=== PATIENT | male | born 1945 | race Caucasian/White ===

== ENCOUNTER 2017-03-29 13:18 | Inpatient (IN) | payer MEDICARE ==
[2017-03-29] MEDS ORDERED: Diltiazem HCl 125 MG, IV Admixture Fee 1 EACH in Sodium Chloride 0.9% 100 ML SLOW IVP SCH (13:45)
[2017-03-29] MEDS ORDERED: Diabetic Tussin 200 MG/10 ML UDCUP PO PRN (14:51)
[2017-03-29] MEDS ORDERED: Mag-Al 1200 mg/1200 mg/30 ML UDCUP PO PRN (14:51)
[2017-03-29] MEDS ORDERED: Senokot 8.6 MG TAB PO PRN (14:51)
[2017-03-29] MEDS ORDERED: Nitroglycerin 0.4 MG TAB (25 Tab Bottle) SL PRN (14:51)
[2017-03-29] MEDS ORDERED: Loratadine 10 MG TAB PO PRN (14:51)
[2017-03-29] MEDS ORDERED: Zolpidem Tartrate 5 MG TAB PO PRN (14:51)
[2017-03-29] MEDS ORDERED: HYDROcodone/Acetaminophen 5/325 mg Tablet PO PRN (14:51)
[2017-03-29] MEDS ORDERED: Ondansetron ODT 4 MG TAB PO PRN (14:51)
[2017-03-29] MEDS ORDERED: Labetalol HCl 100 MG/20 ML VIAL SLOW IVP PRN (14:51)
[2017-03-29] MEDS ORDERED: Acetaminophen 325 MG TAB PO PRN (14:51)
[2017-03-29] MEDS ORDERED: Loperamide HCl 2 MG CAP PO PRN (14:51)
[2017-03-29] MEDS ORDERED: Artificial Tears 18 DROP/0.9 ML EA EYE PRN (14:51)
[2017-03-29] MEDS ORDERED: Eucerin (Mineral Oil/Petrolatum,White) 30 gm Jar TOP PRN (14:51)
[2017-03-29] MEDS ORDERED: Ondansetron HCl/PF 4 MG/2 ML Vial IVP PRN (14:51)
[2017-03-29] MEDS ORDERED: Sodium Chloride 0.65% Nasal 44 ML BOT EA NARE PRN (14:51)
[2017-03-29] MEDS ORDERED: Milk Of Magnesia 30 ML UDCUP PO PRN (14:51)
[2017-03-29] MEDS ORDERED: Digoxin 0.5 MG/2 ML AMP SLOW IVP SCH (15:00)
--- NOTE | 2017-03-29 15:14 | HP ---
PRIMARY CARE PHYSICIAN: Naila Lobo, Family Nurse practitioner in [place]. REASON FOR ADMISSION: Transfer from [facility] for atrial flutter with rapid ventricu lar response. HISTORY OF PRESENT ILLNESS: A 71-year-old male who has history of hypertension, congestive heart fa ilure as well as paroxysmal atrial flutter/fibrillation who initially went to [facility] for complaint of palpitation and dizziness. The patient reports that yesterday when he was drink ing coffee, he was feeling palpitations and cold sweat, but that symptoms lasted for only a short te rm and after that he did not have any further palpitation. This morning when the patient was making coffee and he was drinking coffee along with his mother, at that time, patient was also experiencin g palpitations and dizziness. He was feeling funny in his chest. He was not feeling good. He trie d to walk outside, but he was feeling extremely fatigued and dizziness as if he is going to pass out and that is why he came back to his home and laid on couch and asked his mother to call 911. Subse quently, paramedics took him to [facility] where patient was found with atrial fibrill ation/flutter with rapid ventricular response. The patient was given Lovenox 1 mg/kg and he was sta rted on Cardizem drip after bolus that slowed down his heart rate a little bit, but still he was in atrial flutter and that is why this patient was transferred to our emergency room for higher level o f care. This patient reports that he does get this type of palpitations on and off basis, but most of the ti me, it is self-limiting and subsides by itself, but this episode was worst ever and that is why he h as to go to the emergency room. Normally he drinks 2 cups of coffee. He denies any excessive caffeinated products other than that. The patient reports that he has this type of problem in the past, but he is not sure whether any el ectrophysiologic procedure was done or not. The patient is following here Dr. Theodore as a cardiologis t. EMERGENCY ROOM COURSE: This patient was given Cardizem bolus and Cardizem drip at [facility]. Patient also received Lovenox 1 mg/kg and patient was also given normal saline flush with Cardizem injection. REVIEW OF SYSTEMS: The following complete review of systems was negative, unless otherwise mentione d in the HPI or below: Constitutional: Weight loss or gain, ability to conduct usual activities. Skin: Rash, itching. Eyes: Double vision, pain. ENT/Mouth: Nose bleeding, neck stiffness, pain, tenderness. Cardiovascular: Palpitations, dyspnea on exertion, orthopnea. Respiratory: Shortness of breath, wheezing, cough, hemoptysis, fever or night sweats. Gastrointestinal: Poor appetite, abdominal pain, heartburn, nausea, vomiting, constipation, or diar harper. Genitourinary: Urgency, frequency, dysuria, nocturia. Musculoskeletal: Pain, swelling. Neurologic/Psychiatric: Anxiety, depression. Allergy/Immunologic: Skin rash, bleeding tendency. Please see my HPI for pertinent positive and negative. All other review of systems reviewed and neg ative except as mentioned in the HPI. PAST MEDICAL HISTORY: 1. The patient reports that he was told that he has congestive heart failure, but type of congestiv e heart failure is not sure, most likely diastolic. 2. Hypertension. 3. Paroxysmal atrial fibrillation. 4. Dyslipidemia. 5. Gout. PAST SURGICAL HISTORY: Reviewed and negative. PAST PSYCHIATRIC HISTORY: Reviewed and negative. SOCIAL HISTORY: Patient lives at home. He smokes nontobacco products. He denies any smoking. He denies any alcohol. He denies any other illicit drug abuse, but he drinks alcohol, 6 beers on bases. FAMILY HISTORY: Father from melanoma. Mother is still alive. Paternal and maternal grandfath er has history of coronary artery disease. ALLERGIES: No known drug allergies. CURRENT HOME MEDICATIONS: Lisinopril 20 mg p.o. daily, Coreg 6.25 mg twice daily, Lipitor 40 mg p.o . at bedtime, amlodipine 5 mg p.o. daily, allopurinol 100 mg p.o. daily, digoxin 125 mcg p.o. daily, aspirin 81 mg p.o. daily. PHYSICAL EXAMINATION: VITAL SIGNS: In our emergency room, blood pressure 117/91, pulse 143 irregular, respiratory rate 19 , temperature 97.3, saturation 93% on room air, weight 100.7 kilograms. GENERAL: Patient is currently alert, awake, no acute distress. HEAD: Normocephalic, atraumatic. EYES: Pupils round, reactive to light. Extraocular muscles intact. ENT: Oropharynx within normal limits. Moist mucous membranes, no oral lesions, no pharyngeal eryth stephen, no exudate. NECK: Supple. Range of motion is normal. No meningeal signs of irritation. LUNGS: Clear to auscultation without any rhonchi or rales. CARDIAC: S1 and S2 irregularly irregular, tachycardia, no murmur, no gallop, no rub. ABDOMEN: Obesity present. Bowel sounds present. Nontender, nondistended. No organomegaly, no mas s, no suprapubic tenderness. BACK: Examination unremarkable, no CVA tenderness. EXTREMITIES: Upper extremity passive movements of all joints are normal. Lower extremity, no edema . Good peripheral pulsation. SKIN: No skin rash. HEMATOLOGICAL SYSTEM: No lymphadenopathy. NEUROLOGIC: Nonfocal examination. The patient moves all 4 limbs. Plantar bilateral flexor. PSYCHIATRIC: Normal affect. LABORATORY DATA AND IMAGIN. BMP: Sodium 137, potassium 4.6, chloride 106, carbon dioxide 22, anion gap 9, glucose 110, BUN 23, creatinine 1.0, and calcium 9.0. 2. LFT: Total protein 6.9, albumin 3.9, AST 26, ALT 28, alkaline phosphatase 70. 3. Lactic acid 1.7 and lipase 22. 4. Troponin 0.01, CK 47, CK-MB 1.4. 5. TSH 1.47, digoxin 0.4. 6. CBC: WBC 13.3, hemoglobin 18.0, platelets 257. D-dimer less than 150. INR 1.1. 7. Chest x-ray based on my review, no acute cardiopulmonary process. EKG was done at [facility] Room consistent with atrial flutter/fibrillation with rapid ventricular response. ASSESSMENT AND PLAN: 1. Atrial fibrillation/atrial flutter with rapid ventricular response. The patient is on Cardizem drip, his heart rate is still not under control. Patient will require admission. This patient has paroxysmal problem as well. He will need ablation procedure. He will need electrophysiology consul tation as well as cardiology consultation. We will continue with Cardizem drip at 10 mg per hour. We will also consider giving him digoxin 0.125 mg IV x1 dose now. We will continue with Lovenox 1 m g per kg subcu twice daily for chronic anticoagulation. This patient will need chronic anticoagulat ion therapy. Upon discharge, we will obtain echocardiography to assess ejection fraction and other structural abnormality. We will closely monitor on telemetry floor. This patient's thyroid functio n is normal. I advised this patient to avoid excessive caffeinated products. 2. Congestive heart failure, likely diastolic, currently compensated and euvolemic. Patient will h ave echocardiography to assess ejection fraction and other structural abnormality. This patient munoz s not need any diuretic therapy at this point. We will try to control underlying problem like atria l flutter, fibrillation, and hypertension. 3. Hypertension, currently well controlled. We will hold on lisinopril therapy today because we ar e trying to control his heart rate with Cardizem drip and similarly we will also hold on carvedilol temporarily. 4. Dyslipidemia. Check lipid profile tomorrow and continue Lipitor 40 mg p.o. at bedtime. 5. Gout. We will check uric acid tomorrow and continue allopurinol 100 mg p.o. daily. 6. Deep venous thrombosis prophylaxis. Patient is already on Lovenox therapy. 7. Gastrointestinal prophylaxis, Pepcid 20 mg p.o. b.i.d. 8. Obesity. Dietary education given and weight loss education given. Healthy lifestyle measures d iscussed with the patient. 9. CODE STATUS: The patient is FULL CODE. Patient does not have any surrogate decision maker. Disposition and plan based on clinical course. We are expecting patient's stay in hospital more helen n 2 midnights. Plan of care discussed with the patient in detail.
[2017-03-29 15:19] LABS: Troponin I Less than 0.010 ng/mL (< 0.028)
[2017-03-29 15:57] VITALS: BMI 28.0
[2017-03-29 17:16] LABS: Bilirubin Negative (Negative); Blood, Urine Negative (Negative); Glucose, Urine (Dipstick) Negative (Negative); Ketone, Urine Trace mg/dL (Negative); Nitrite Negative (Negative); Protein, Urine (Dipstick) Negative (Neg-Trace); Urobilinogen 0.2 mg/dL (0.2-1.0)
[2017-03-29 17:18] LABS: Bacteria/HPF None Seen HPF (None Seen); Hyaline Casts/LPF 0-3 HYALINE CAST LPF (0-3 Hyaline); Squamous Epithelial None Seen HPF (0-3); WBC/HPF 0-3 HPF (0-3)
[2017-03-29 18:29] LABS: Troponin I 0.012 ng/mL (< 0.028)
[2017-03-29] MEDS: Atorvastatin Calcium 40 MG TAB PO SCH (20:17)
[2017-03-29] MEDS: Famotidine 20 MG TAB PO SCH (20:17)
[2017-03-30 05:25] LABS: #Basophils 0.1 thou/uL (0.0-0.2); #Eosinphils 0.4 thou/uL (0.0-0.7); #Monocytes 1.4 thou/uL (0.11-0.59); #Neutrophils 10.9 thou/uL (1.40-6.50); %Basophils 0.6 % (0.0-1.0); %Eosinophils 2.7 % (0.0-10.0); %Lymphocytes 13.4 % (21.0-51.0); %Monocytes 9.4 % (0.0-10.0); Hematocrit 52.2 % (42.0-52.0); Mean Platelet Volume 7.1 fL (7.4-10.4); Red Blood Cell (RBC) Count 5.35 mill/uL (4.70-6.10); White Blood Cell (WBC) Count 14.7 thou/uL (4.8-10.8)
[2017-03-30 05:52] LABS: ALT (SGPT) 19 U/L (8-55); AST (SGOT) 17 U/L (5-34); Alkaline Phosphatase 70 U/L (40-150); Anion Gap 13 mmol/L (10-20); BUN (Urea Nitrogen) 21 mg/dL (8.4-25.7); Bilirubin, Total 0.6 mg/dL (0.2-1.2); Calc. Creatinine Clearance 94 mL/min (70-130); Calcium 8.9 mg/dL (7.8-10.44); Carbon Dioxide 25 mmol/L (23-31); Chloride 104 mmol/L (98-107); Cholesterol 162 mg/dl (< 200 Desired); Estimated GFR-MDRD 79; Globulin 2.7 g/dL (2.4-3.5); LDL Cholesterol, Calculated 93 mg/dL; Protein, Total 6.3 g/dL (5.8-8.1); Uric Acid 7.6 mg/dL (3.5-7.2)
--- NOTE | 2017-03-30 06:45 | CON ---
DATE OF CONSULTATION: 03/29/2017 ELECTROPHYSIOLOGY CONSULTATION REFERRING PHYSICIAN: Dr. Ott. I am seeing Mr. 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 His problems are: 1. Newly found atrial flutter with rapid ventricular rates. A. No prior history of atrial fibrillation or flutter, but only palpitation on diagnosis. B. Past history of diastolic heart failure followed by Dr. Kun Theodore as an outpatient. C. Coronary artery risk factors. 2. Hypertension. 3. Dyslipidemia. ALLERGIES: None noted. MEDICATIONS: At home lisinopril 20 mg daily, Coreg 6.25 mg twice a day, Lipitor 40 mg at bedtime, a mlodipine 5 mg daily, allopurinol 100 mg daily, digoxin 125 mcg daily, aspirin 81 mg daily. SUBJECTIVE: Mr. Beverly is here due to rapid palpitations. The echo was noted to have rapid heart r ates in the ER, the EKG suggestive of atrial flutter. He was started on diltiazem drip and given IV Lovenox. He has been feeling somewhat better. He denies chest pains. No stroke like symptoms not ed, does not report any bleeding, no fever, chills, cough, no wheezing, no PND, orthopnea or lower e xtremity edema or weight gain recently. REVIEW OF SYSTEMS: The rest of the 12-point review of system otherwise unremarkable. PAST MEDICAL HISTORY: As above, the patient has a remote history of lower extremity pain and Dopple r ultrasound was negative for claudication. SOCIAL HISTORY: The patient denies smoking, EtOH or drug abuse. He is at home. He does drink abou t 6 beers on weekend. FAMILY HISTORY: Noncontributory. OBJECTIVE DATA: VITAL SIGNS: Blood pressure is 118/83, heart rate is 147, respiratory rate 16, temperature 97.9 deg janis Fahrenheit. GENERAL: Alert and oriented man in no apparent distress. NECK: Supple. Jugular veins are not distended. CHEST: Coarse without crackles. CARDIAC: Heart sounds are irregular, tachycardic, S1, S2, is variable. No murmur or gallop. ABDOMEN: Benign. Bowel sounds are positive. EXTREMITIES: Lower extremities without edema, clubbing or cyanosis. Pulses are adequate. NEUROLOGIC: The patient is nonfocal. MUSCULOSKELETAL: No joint swelling or deformities. SKIN: Without rash. DATABASE: The EKG is reviewed revealing typical atrial flutter with 2:1 AV conduction. Prior EKG i n the ER reveals atrial flutter with somewhat variable AV conduction and typical flutter waves are s een suggestive of cavotricuspid isthmus dependency. LABORATORY DATA: Troponin is 0.012, initial troponin 0.01. The BMP with sodium 137, potassium 4.6, BUN 23, creatinine 1.0, 1.7. TSH 1.47. White cell count 13.3, hemoglobin 18, platelet count is 257. D-dimer less than 150. Chest x-ray shows no acute cardiopulmonary process. ASSESSMENT AND PLAN: Mr. Beverly is a very pleasant 71-year-old man who has a history of palpitation s, but not aware of definite atrial fibrillation. He is somewhat of a poor historian. Now seems to be presenting with atrial flutter with rapid rates. I discussed the mechanism of atrial flutter, which likely cavotricuspid isthmus dependent flutter ba sed on the EKG morphology. The treatment options were detailed including rate control anticoagulati on. A BLAISE guided cardioversion and possibly cavotricuspid isthmus ablation were all discussed. ___ __ of the ablation, which likely will yield more lasting result. He would prefer that he understand s the risk of bleeding, infection, stroke, recurrence, and tamponade, willing to proceed. We will s chedule him for the nearest date. Thank you for the consult.
[2017-03-30] MEDS: Aspirin 325 MG TAB PO SCH (07:44)
[2017-03-30] MEDS: Digoxin 0.125 MG TAB PO SCH (08:10)
[2017-03-30] MEDS: Famotidine 20 MG TAB PO SCH ×2 (08:16→21:34)
[2017-03-30 08:26] LABS: Magnesium 1.9 mg/dL (1.6-2.6); Phosphorus 3.4 mg/dL (2.3-4.7)
[2017-03-30] MEDS ORDERED: Allopurinol 100 MG TAB PO SCH (09:00)
[2017-03-30] MEDS ORDERED: Diprivan 0 ML ONE (13:59)
[2017-03-30] MEDS ORDERED: PHENYLEPHRINE-NS 100 MCG/ML 10 ML SYRINGE ONE ×2 (15:46→15:51)
[2017-03-30] MEDS ORDERED: Glycopyrrolate 0.2 MG/ML 5 ML SYRINGE ONE ×2 (15:47→15:51)
[2017-03-30] MEDS ORDERED: Heparin 10,000 UNITS/1 ML VIAL ONE (15:49)
[2017-03-30] MEDS ORDERED: Propofol 1,000 MG/100 ML VIAL IV ONE (15:50)
[2017-03-30] MEDS ORDERED: Propofol 200 MG/20 ML VIAL ONE (15:51)
[2017-03-30] MEDS ORDERED: Propofol 500 MG/50 ML VIAL ONE (17:02)
[2017-03-30] MEDS ORDERED: DOPamine 400 MG/D5W 250 ML 250 ML ONE (17:03)
[2017-03-30] MEDS ORDERED: Labetalol HCl 100 MG/20 ML VIAL SLOW IVP PRN (17:16)
--- NOTE | 2017-03-30 17:58 | PRG ---
DATE OF SERVICE: 03/30/2017 SUMMARY: A 71-year-old male with paroxysmal atrial fibrillation, hypertension and dyslipidemia, pre sented to the hospital with palpitations. His workup was consistent with atrial flutter with rapid ventricular response. He was started on Cardizem drip. SUBJECTIVE: The patient denies any new complaints at this time. He remains on the Cardizem drip. No chest pain, shortness of breath or palpitations. CURRENT MEDICATIONS: Reviewed. The patient is on Cardizem drip. Other home medications including digoxin has been restarted. Lisinopril is currently on hold. Carvedilol is also on hold. OBJECTIVE: VITAL SIGNS: Temperature 97.8, pulse 86, respiration 16, blood pressure 108/57 with O2 saturation 9 2% on room air. Intake of 505 and output 1250. GENERAL: A 71-year-old male in no apparent distress. Telemetry monitoring showed atrial fibrillati on. LUNGS: Clear to auscultation bilaterally. HEART: S1 and S2 present. Irregularly irregular. ABDOMEN: Soft and nontender. Bowel sounds are present. EXTREMITIES: No edema or calf tenderness. SIGNIFICANT LABORATORY DATA: Electrolytes are in normal range. TSH 1.8. Cardiac enzymes were norm al. Echocardiogram has been done and report pending at this time. IMPRESSION: 1. Atrial flutter/fibrillation with rapid ventricular response, currently on Cardizem drip. Patien t will undergo BLAISE with ablation later today. An echocardiogram has been done. Patient is currentl y been seen by Electrophysiology, Dr. Hsu. We will discuss anticoagulation with Dr. Hsu. 2. Chronic diastolic heart failure, compensated. 3. Hypertension. We will continue to monitor. We will resume home medications once we will resume selected home medications probably in a.m. 4. History of paroxysmal atrial fibrillation. We will continue digoxin. 5. Dyslipidemia. We will continue statins. 6. Gout. Continue allopurinol. 7. Chronic kidney disease stage 2. 8. Leukocytosis, unlikely to be infectious in origin. Plan of care was discussed with the patient. He stated understanding. DISPOSITION: Probably in a.m. once cleared by Electrophysiology. The anticoagulation to be [facility] ed with Electrophysiology.
[2017-03-30] MEDS ORDERED: diphenhydrAMINE HCl 25 MG CAP PO PRN (19:53)
[2017-03-30] MEDS ORDERED: Silver Sulfadiazine 1% Cream 50 GM JAR TOP PRN (19:53)
[2017-03-30] MEDS ORDERED: Nitroglycerin 0.4 MG TAB (25 Tab Bottle) SL PRN (19:53)
[2017-03-30] MEDS ORDERED: Bisacodyl 10 MG SUPP PR PRN (19:53)
[2017-03-30] MEDS ORDERED: Acetaminophen 325 MG TAB PO PRN (19:53)
[2017-03-30] MEDS ORDERED: Mag-Al 1200 mg/1200 mg/30 ML UDCUP PO PRN (19:53)
[2017-03-30] MEDS ORDERED: Ondansetron HCl/PF 4 MG/2 ML Vial IVP PRN (19:53)
[2017-03-30] MEDS ORDERED: Temazepam 15 MG CAP PO PRN (19:53)
[2017-03-30] MEDS ORDERED: Bisacodyl 5 MG TAB PO PRN (19:53)
[2017-03-30] MEDS ORDERED: traMADol HCl 50 MG TAB PO PRN (19:53)
[2017-03-30] MEDS: Carvedilol 6.25 MG TAB PO SCH (21:34)
[2017-03-30] MEDS: Atorvastatin Calcium 40 MG TAB PO SCH (21:35)
--- NOTE | 2017-03-31 00:24 | CCL ---
DATE OF SERVICE: 03/30/2017 This is a comprehensive electrophysiology study and radiofrequency ablation report. REFERRING PHYSICIAN: Chad Theodore DO and Dr. Milka Ott. REASON FOR PROCEDURE: Mr. Beverly is a 71-year-old male with prior history of diastolic heart failur e, but no arrhythmias, presenting with sustained palpitations, dizziness, and noted to be in atrial flutter with rapid rates. He received diltiazem per protocol and rate controlled overnight. This a fternoon, he converted back to sinus rhythm. He is here for radiofrequency ablation of the cavotric uspid isthmus. DESCRIPTION OF PROCEDURE: The patient received deep sedation by Anesthesia specialist. After adequ ate level of sedation achieved, both groins were prepped and draped, and the right femoral venous ar ea was anesthetized using subcutaneous lidocaine. The right femoral vein was accessed using a multi purpose needle under the guidance of vascular ultrasound. Two 8-Serbian short sheaths were introduce d through which a 7-Serbian decapolar catheter was advanced to the CS. Following that, it was advanc ed to the right atrium, His bundle, right ventricular and eventually CS position. Following that, a ThermoCool SmartTouch SF bidirectional ablation catheter was advanced to the right atrium. A 3D ma pping was obtained, noting the His bundle, coronary sinus and a cavotricuspid isthmus locations. Fo llowing that, a full EP study was performed demonstrating borderline sinus anjelica function. Patient was on diltiazem with CSNRT of 1318, corrected sinus node recovery time is 418. AV Wenckebach cycle length was 340. AV anjelica ERP of 600/300. No dual AV anjelica physiology present. Central retrograde VA conduction is noted. No accessory pathway is demonstrated. A burst pacing did not induce any a rrhythmias. Due to the clear documentation of typical isthmus-dependent atrial flutter by morpholog y cavotricuspid isthmus ablation was performed using the ----- mapping system for targeting the isth mus. Also, pace mapping was obtained with CS proximal pacing below Wenckebach cycle length demonstr ating transisthmus time initially around 56 milliseconds extending the transisthmus time post-ablati on to 150 milliseconds. Unidirectional block was clearly demonstrated by progressively lengthening transisthmus time measurements measured from the lateral side of the isthmus coming medial towards t he line in the distal side of the isthmus from the ablation. The dopamine was administered and repeated measurements of the transisthmus time was obtained. Also , we attempted the induction of flutter without success. CONCLUSION: 1. Successful cavotricuspid isthmus ablation. 2. Borderline sinus anjelica function on diltiazem. 3. Normal His bundle and AV anjelica function is noted. HV was 54, AH was 138 milliseconds. PLAN: Anticoagulation for a month and a discharge home in a.m. likely if stable. POS: PRADIP
[2017-03-31] MEDS ORDERED: Allopurinol 100 MG TAB PO SCH (09:00)
[2017-03-31] MEDS: Famotidine 20 MG TAB PO SCH (09:07)
[2017-03-31] MEDS: Digoxin 0.125 MG TAB PO SCH (09:07)
[2017-03-31] MEDS: Aspirin 325 MG TAB PO SCH (09:07)
[2017-03-31] MEDS: Carvedilol 6.25 MG TAB PO SCH (09:07)
[2017-03-31 12:19] VITALS: BP 111/59; TEMP 98.9
--- NOTE | 2017-03-31 15:28 | DIS ---
DATE OF DISCHARGE: 03/31/2017 DISCHARGE DISPOSITION: Home. FOLLOWUP: 1. Follow up with primary care physician, RENAN Gerard in 1 week. 2. Follow up with Cardiology, Dr. Chad Theodore and Electrophysiology, Dr. Hsu as scheduled. ALLERGIES: No known drug allergies. DISCHARGE MEDICATIONS: 1. Xarelto 20 mg daily. Risk of bleeding and other complications from Xarelto discussed with the p atient and he stated understanding. 2. Allopurinol 100 mg daily. 3. Amlodipine 5 mg daily. 4. Lipitor 40 mg daily. 5. Carvedilol 6.25 mg b.i.d. 6. Vitamin D 1000 units b.i.d. 7. Digoxin 0.125 mg daily. 8. Glucosamine once daily. 9. Lisinopril 5 mg daily. 10. Multivitamin 1 tablet daily. 11. Niacin 500 mg daily. 12. Coenzyme Q10 400 mg daily. INPATIENT CONSULTANTS: Electrophysiology, Dr. Hsu. INPATIENT PROCEDURES: The patient underwent electrophysiology study with ablation of cavotricuspid isthmus on 03/30/2017 for atrial flutter. The patient was seen and examined on the day of discharge. He denies any new complaints. Vital sig ns were reviewed. BRIEF HOSPITAL COURSE: The patient is a 71-year-old male with paroxysmal atrial fibrillation, hyper tension, and dyslipidemia, who presented to the hospital with palpitations. His workup was consiste nt with atrial flutter with rapid ventricular response. He was started on Cardizem drip. He was ev aluated by Electrophysiology. He underwent BLAISE ablation yesterday by Dr. Hsu. He has been cleared by electrophysiology for discharge. Anticoagulation has been recommended. Due to risk of bleeding and other complications from Xarelto, discussed with the patient and he stated understanding. His echocardiogram showed ejection fraction of 50-55%. FINAL DIAGNOSES: 1. Atrial flutter with rapid ventricular response, status post BLAISE with ablation. Patient will con tinue anticoagulation for at least one month. Further anticoagulation per Dr. Hsu/Cardiology. 2. Paroxysmal atrial fibrillation. 3. Chronic diastolic heart failure. 4. Hypertension. 5. Dyslipidemia. 6. Gout. 7. Chronic kidney disease stage 2. 8. Leukocytosis, unlikely to be infectious. Plan of care was discussed with the patient. He stated understanding.
[2017-03-31] MEDS ORDERED: Rivaroxaban 10 MG TAB PO SCH (17:00)
== END 2017-03-31 13:42 | disposition home or self-care (01) | DRG 274 ==
LOC: ERS 13:18 → ERHOLD 14:30 → 2SE 16:18
PROVIDERS: ADMIT Internal Medicine; ATTEND Internal Medicine
PROC: 02583ZZ Destruction of Conduction Mechanism, Percutaneous Approach (ICD-10-PCS; principal; 2017-03-30)
DX: I48.0 Paroxysmal atrial fibrillation (principal); I50.32 Chronic diastolic (congestive) heart failure; I13.10 Hypertensive heart and chronic kidney disease without heart failure, with stage 1 through stage 4 chronic kidney disease, or unspecified chronic kidney disease; I48.92 Unspecified atrial flutter; E78.5 Hyperlipidemia, unspecified; E66.9 Obesity, unspecified; N18.2 Chronic kidney disease, stage 2 (mild); M10.9 Gout, unspecified; D72.829 Elevated white blood cell count, unspecified; Z68.27 Body mass index [BMI] 27.0-27.9, adult; Z82.49 Family history of ischemic heart disease and other diseases of the circulatory system; Z84.89 Family history of other specified conditions; Z80.8 Family history of malignant neoplasm of other organs or systems
CPT/HCPCS: 36415; 80053; 80061; 81001; 83735; 84100; 84443; 84484; 84550; 85025; 93005; 93010; 93306; 93613; 93623; 93653; 96365; 96366; C1730; C1769; J1160; J1265; J1644; J2704; J7050

== ENCOUNTER 2017-04-23 17:44 | Emergency (ER) | payer MEDICARE ==
[2017-04-23] MEDS ORDERED: Bacitracin Zinc 1 Packet ONE (18:48)
[2017-04-23 19:10] LABS: PTT 29.9 SEC (22.9-36.1); Prothrombin Time 14.3 SEC (12.0-14.7)
== END 2017-04-23 19:24 | disposition home or self-care (01) ==
LOC: ERS 17:44
DX: I83.892 Varicose veins of left lower extremity with other complications (principal); I50.9 Heart failure, unspecified; Z87.891 Personal history of nicotine dependence
CPT/HCPCS: 36415; 85610; 85730; 99283

== ENCOUNTER 2017-12-01 09:13 | Emergency (ER) | payer MEDICARE ==
[2017-12-01 09:40] LABS: #Eosinphils 0.2 thou/uL (0.0-0.7); #Lymphocytes 1.3 thou/uL (1.20-3.40); #Monocytes 0.8 thou/uL (0.11-0.59); #Neutrophils 8.8 thou/uL (1.40-6.50); %Basophils 0.4 % (0.0-1.0); %Eosinophils 2.1 % (0.0-10.0); %Lymphocytes 11.5 % (21.0-51.0); %Neutrophils 79.1 % (42.0-75.0); Hemoglobin 15.5 g/dL (14.0-18.0); Mean Corpuscular HGB CONC 33.5 g/dL (32.0-36.0); Mean Corpuscular Hemoglobin 30.8 pg (27.0-31.0); Mean Platelet Volume 6.6 fL (7.4-10.4); Platelet Count 300 thou/uL (130-400); RBC Distribution Width 12.3 % (11.5-14.5); Red Blood Cell (RBC) Count 5.04 mill/uL (4.70-6.10); White Blood Cell (WBC) Count 11.1 thou/uL (4.8-10.8)
[2017-12-01] MEDS ORDERED: Ondansetron ODT 8 MG TAB ONE (09:52)
[2017-12-01 09:56] LABS: Bilirubin Negative (Negative); Blood, Urine Negative (Negative); Clarity CLEAR (Clear); Glucose, Urine (Dipstick) Negative (Negative); Leukocyte Negative (Negative); Nitrite Negative (Negative); Protein, Urine (Dipstick) Negative (Neg-Trace); Specific Gravity, Urine 1.011 (1.002-1.036); Urobilinogen 0.2 mg/dL (0.2-1.0)
[2017-12-01 10:02] LABS: ALT (SGPT) 20 U/L (8-55); AST (SGOT) 21 U/L (5-34); Albumin 4.2 g/dL (3.4-4.8); Alkaline Phosphatase 95 U/L (40-150); Anion Gap 13 mmol/L (10-20); BUN (Urea Nitrogen) 11 mg/dL (8.4-25.7); Bilirubin, Total 0.5 mg/dL (0.2-1.2); Calc. Creatinine Clearance 0 mL/min (70-130); Calcium 9.4 mg/dL (7.8-10.44); Carbon Dioxide 26 mmol/L (23-31); Chloride 97 mmol/L (98-107); Estimated GFR-MDRD 81; Globulin 2.7 g/dL (2.4-3.5); Glucose 149 mg/dL (83-110); Potassium 4.8 mmol/L (3.5-5.1); Protein, Total 6.9 g/dL (5.8-8.1); Sodium 131 mmol/L (136-145)
[2017-12-01 10:05] LABS: CKMB 1.5 ng/mL (0-6.6); Troponin I Less than 0.010 ng/mL (< 0.028)
[2017-12-01 10:12] LABS: Digoxin 0.55 ng/mL (0.8-2.0)
== END 2017-12-01 11:00 | disposition home or self-care (01) ==
LOC: ERS 09:13
DX: R11.0 Nausea (principal); E78.5 Hyperlipidemia, unspecified; I10 Essential (primary) hypertension; I50.9 Heart failure, unspecified; F32.9 Major depressive disorder, single episode, unspecified; Z87.891 Personal history of nicotine dependence; Z79.899 Other long term (current) drug therapy; Z79.82 Long term (current) use of aspirin
CPT/HCPCS: 80053; 80162; 81003; 82553; 84484; 85025; 93005

== ENCOUNTER 2019-07-24 08:28 | Inpatient (IN) | payer MEDICARE ==
--- NOTE | 2019-07-24 08:57 | RAD ---
CHEST 1 VIEW: Date: 07/24/2019 HISTORY: Dyspnea. COMPARISON: Radiograph from 2011. FINDINGS: Lungs are clear. No pneumothorax or effusion. Cardiac silhouette and mediastinal contours within norm al limits. IMPRESSION: No acute intrathoracic abnormality. POS: TPC
[2019-07-24 09:12] LABS: #Lymphocytes 1.5 thou/uL (1.20-3.40); #Monocytes 0.9 thou/uL (0.11-0.59); #Neutrophils 15.1 thou/uL (1.40-6.50); %Basophils 0.3 % (0.0-1.0); %Eosinophils 0.3 % (0.0-10.0); %Lymphocytes 8.5 % (21.0-51.0); %Monocytes 5.1 % (0.0-10.0); Hemoglobin 11.7 g/dL (14.0-18.0); Mean Corpuscular HGB CONC 33.3 g/dL (32.0-36.0); Mean Corpuscular Hemoglobin 31.5 pg (27.0-31.0); Mean Corpuscular Volume 94.7 fL (78.0-98.0); Mean Platelet Volume 7.7 fL (7.4-10.4); Platelet Count 261 thou/uL (130-400); RBC Distribution Width 12.8 % (11.5-14.5); Red Blood Cell (RBC) Count 3.73 mill/uL (4.70-6.10); White Blood Cell (WBC) Count 17.6 thou/uL (4.8-10.8)
[2019-07-24 09:36] LABS: ALT (SGPT) 13 U/L (8-55); AST (SGOT) 15 U/L (5-34); Albumin 3.8 g/dL (3.4-4.8); Alkaline Phosphatase 61 U/L (40-110); Anion Gap 14 mmol/L (10-20); BUN (Urea Nitrogen) 82 mg/dL (8.4-25.7); Bilirubin, Total 0.5 mg/dL (0.2-1.2); CK (CPK) 28 U/L (30-200); Calc. Creatinine Clearance 0 mL/min (70-130); Calcium 8.9 mg/dL (7.8-10.44); Carbon Dioxide 22 mmol/L (23-31); Chloride 102 mmol/L (98-107); Estimated GFR-MDRD 69; Globulin 2.5 g/dL (2.4-3.5); Glucose 143 mg/dL (83-110); Lipase 14 U/L (8-78); Potassium 4.4 mmol/L (3.5-5.1); Protein, Total 6.3 g/dL (5.8-8.1); Sodium 134 mmol/L (136-145)
[2019-07-24 10:51] LABS: Bacteria/HPF None Seen HPF (None Seen); Bilirubin Negative (Negative); Blood, Urine Negative (Negative); Clarity Clear (Clear); Glucose, Urine (Dipstick) Normal (Negative); Leukocyte 25 Leu/uL (Negative); Nitrite Negative (Negative); Protein, Urine (Dipstick) Negative (Neg-Trace); Squamous Epithelial None Seen HPF (0-3); Urobilinogen Normal mg/dL (Less than 2); WBC/HPF 0-3 HPF (0-3)
[2019-07-24] MEDS ORDERED: Pantoprazole 40 MG VIAL ONE (11:38)
[2019-07-24] MEDS ORDERED: Ondansetron PF 4 MG/2 ML Vial ONE (11:57)
[2019-07-24 13:38] VITALS: BMI 30.4
[2019-07-24] MEDS ORDERED: Ondansetron PF 4 MG/2 ML Vial IVP PRN ×2 (13:43→16:02)
[2019-07-24] MEDS ORDERED: Ondansetron ODT 4 MG TAB SL PRN (13:43)
[2019-07-24 15:14] LABS: Hemoglobin 10.7 g/dL (14.0-18.0)
[2019-07-24] MEDS ORDERED: Acetaminophen 325 MG TAB PO PRN (16:02)
[2019-07-24] MEDS ORDERED: Pantoprazole 80 MG in Sodium Chloride 0.9% 100 ML IVP SCH (16:15)
--- NOTE | 2019-07-24 16:46 | PDOC.EVN ---
Event Note - Event Note Event Note: H 7 p dictated - [id number] UGIB, prob. hold asa/xarelto NPO GI on board.
[2019-07-24] MEDS: Pantoprazole 80 MG in Sodium Chloride 0.9% 100 ML IVPB SCH (17:47)
--- NOTE | 2019-07-24 17:55 | CON ---
DATE OF CONSULTATION: 07/24/2019 REQUESTING PHYSICIAN: Dr. Norwood. REASON FOR CONSULTATION: GI bleeding. HISTORY OF PRESENT ILLNESS: Chris Beverly is a very pleasant 73-year-old man, who has previously seen my GI colleague, Dr. Queta Mcgowan. He had a screening colonoscopy back in 2011 with her. He has no other significant past gastrointestinal history or any history of liver disease. He does have congestive heart failure and is taking Xarelto as well as aspirin 81 mg daily. He reports that yesterday morning, he started having some shortness of breath, dyspnea on exertion, and presyncope. He would feel better when lying supine. There was associated nausea with this, but no vomiting or abdominal pain. He had been having some mild constipation for a few days and so took some MiraLAX last night. This morning, his symptoms of dizziness persisted and he had a dark tarry bowel movement. He presented to the hospital following this. He has been hemodynamically stable. He has not had any bowel movement since arrival. There was never any hematochezia or hematemesis. His initial hemoglobin was 11.7 and this declined down to 10.7 this afternoon. Notably, hemoglobin was 15.5 back in November 2017. Also notably, his BUN was elevated to 82 with creatinine only 1.05. He remains hemodynamically stable, currently feeling well. He has no other complaints. PAST MEDICAL HISTORY: Hypertension, hyperlipidemia, congestive heart failure, and gout. ALLERGIES: NO KNOWN DRUG ALLERGIES. OUTPATIENT MEDICATIONS: 1. Xarelto. 2. Aspirin 81 mg daily. 3. Hydrochlorothiazide. 4. Digoxin. 5. Lisinopril. 6. Coreg. 7. Allopurinol. 8. Lipitor. 9. Niacin. 10. Coenzyme Q10. INPATIENT MEDICATIONS: 1. Protonix 40 mg IV twice daily. 2. Zofran. SOCIAL HISTORY: He is a former smoker. He will drink alcohol several days the week, averaging a six-pack a day when he does drink. No drug use. FAMILY HISTORY: Noncontributory. REVIEW OF SYSTEMS: Full review of systems including constitutional, head, eyes, ears, nose, throat, GI, , cardiovascular, respiratory, musculoskeletal, and neurologic systems is negative except as noted in the HPI. PHYSICAL EXAMINATION: VITAL SIGNS: Temperature 97.8, pulse 67, blood pressure 110/65, and 94% oxygen saturation on room air. GENERAL: No acute distress. SKIN: No jaundice. No rashes were palpable. HEENT: Eyes, no scleral icterus. Extraocular movements intact. ENT, mucous membranes moist. No oral lesions. LYMPH: No submandibular or supraclavicular lymphadenopathy. THYROID: Nontender to palpation. HEART: Regular rate and rhythm. LUNGS: Clear to auscultation bilaterally. ABDOMEN: Bowel sounds present. Soft. Some mild tenderness to palpation in the epigastrium, but no guarding or rebound tenderness. EXTREMITIES: No peripheral edema. VESSELS: Radial pulses 2+ bilaterally. NEURO: Cranial nerves 2 through 12 intact bilaterally. No focal deficits. LABORATORY STUDIES: WBC 17.6, hemoglobin initially 11.7 and declined to 10.7, and platelets 261. Sodium 134, potassium 4.4, BUN 82, creatinine 1.05, and glucose 143. LFTs all normal with total bilirubin 0.5, alkaline phosphatase 61, AST 15, ALT 13, and albumin 3.8. CK is 28, BNP only 15, and troponin negative. Lipase 14. Urinalysis shows 4 to 6 rbc's. IMAGING STUDIES: Chest x-ray shows no acute processes. ASSESSMENT AND PLAN: 1. Melena, single episode this morning. 2. Symptomatic anemia, suspicious for acute gastrointestinal blood loss. 3. Chronic anticoagulation, on Xarelto due to history of congestive heart failure. The patient's presentation does seem consistent with likely upper gastrointestinal bleed, particularly given the elevated BUN to creatinine ratio and the melenic appearance of stool this morning. That being said, this was a single episode and he has been quite stable since admission this morning. Please continue to hold the Xarelto. Agree with the pantoprazole IV, would recommend changing this to continuous infusion. Continue to trend H and H and transfuse as needed, and monitor clinically. We will plan for diagnostic esophagogastroduodenoscopy tomorrow morning. Obviously, if there are any significant changes in clinical status, we could always perform it more emergently at any time if needed. But, I would prefer to hold the Xarelto a bit longer before proceeding with any procedure. Thank you for the consultation. Please call anytime with questions or concerns. Job ID: [id number]
--- NOTE | 2019-07-24 19:46 | HP ---
CHIEF COMPLAINT: Blood in the stool. HISTORY OF PRESENT ILLNESS: A 73-year-old male with history of atrial fibrillation, on Xarelto; hypertension; hyperlipidemia; presenting with dizziness. Symptoms started yesterday. Last evening, he had some dark brown stool noted. He took Metamucil this morning and noted again stool mixed with blood. He had a remote history of similar episode. The patient does not have any history of hemorrhoids. No hematemesis or hemoptysis. He is on Xarelto for his AFib and planned for Watchman procedure evaluation that is scheduled for August 06. He takes ibuprofen for generalized aches intermittently. He takes daily baby aspirin along with Xarelto. His last colonoscopy was 10 years ago and that was negative. In the ER, his hemoglobin was 11.7. GI consult has been notified by the ER physician. The patient is admitted in the telemetry for further evaluation including endoscopic intervention as deemed necessary by the GI specialist. His symptoms included cold sweat and dizziness. He denied any abdominal pain, nausea, vomiting, or diarrhea. He was actually constipated and was taking Metamucil. REVIEW OF SYSTEMS: Denies any fever, night sweats, chills, nonproductive cough, chest pain, orthopnea, PND, or lower extremity edema. Denies dysuria or hematuria. Denies any musculoskeletal tenderness or pain. No headache or blurriness. No rash. Rest of the review of systems is negative. PAST MEDICAL HISTORY: Hypertension, hyperlipidemia. PAST SURGICAL HISTORY: Had AFib ablation in March 2017. SOCIAL HISTORY: The patient does not smoke. He quit smoking 10 years ago. He does drink alcohol on a daily basis. No history of alcohol withdrawal or seizure episodes. The patient does not use illicit drugs. The patient takes care of his mother at home. FAMILY HISTORY: Mother is healthy at 95 years old. Father had a melanoma. ALLERGIES: HE HAS NO KNOWN DRUG ALLERGIES. MEDICATIONS: 1. Coenzyme Q10 of 400 mg daily. 2. Multivitamin tablet. 3. Aspirin 81 mg daily. 4. Lipitor 40 mg at bedtime. 5. Allopurinol 100 mg daily. 6. Coreg 6.25 mg twice a day. 7. Lisinopril 20 mg daily. 8. Digoxin 125 mcg daily. 9. Hydrochlorothiazide 12.5 mg daily. 10. Xarelto 2.5 mg daily. Needs to be verified. It appears wrong dose. PHYSICAL EXAMINATION: VITAL SIGNS: Temperature 97.7, pulse 84, blood pressure 126/62, saturating 90% on room air. GENERAL: The patient is alert, oriented x4, well developed, mildly under obese side, not in any acute distress, and nontoxic looking. HEENT: Pupils are equal, round, and reactive to light. Anicteric. Mucous membranes moist. CARDIOVASCULAR: Irregular rhythm with regular rate. No murmurs, rubs, or gallops. LUNGS: Clear to auscultation bilaterally without wheezing, rales, or rhonchi. ABDOMEN: Quite protuberant, but nontender. Bowel sounds are positive. No rash noted in the abdominal area. EXTREMITIES: Without any pitting edema. However, he has significant ecchymosis on his right arm. No edema. NEUROLOGIC: No focal deficits. PSYCHIATRIC: Appropriate mood and affect. LABORATORY DATA: His EKG showed normal sinus rhythm with a rate of 86 beats per minute, has some PVCs. Incomplete right bundle-branch block. Nonspecific ST-T wave changes. Hemoglobin of 11.7. That has been dropped to 10.7 at 3:00 p.m. lab draw. His white count is 17.6, platelet is 261. Chemistry; sodium 134, potassium 4.4, chloride 102, bicarb 22. Liver function test is in the normal range. Creatinine 1.05. BNP 15.2. Lipase 14. His UA is quite benign. IMPRESSION AND PLAN: This is a 73-year-old male with history of atrial fibrillation, on Xarelto; hypertension; hyperlipidemia; presenting with probable upper gastrointestinal bleed given dark-colored stool. Currently, his hemoglobin is stable even though it dropped 1 unit in the last few hours. GI specialist on board. We will keep him n.p.o. midnight. Hematochrome check x2 daily, last in the morning. Holding aspirin and Xarelto. He will be on PPI IV. He is noted to have elevated BUN and consistent with his gastrointestinal bleed. Leukocytosis probably due to stress demargination. He does not clinically look infectious. Atrial fibrillation. Rate controlled with Coreg. We will continue with his Coreg as well as lisinopril for his hypertension. Hyperlipidemia. Continue with Lipitor. Deep venous thrombosis prophylaxis with SCDs. Full code. Keep him n.p.o. Continue with tPA and Zofran as needed. Rest of the management based on the clinical course. Job ID: [id number]
[2019-07-24] MEDS: Atorvastatin Calcium 40 MG TAB PO SCH (20:04)
[2019-07-24] MEDS: Carvedilol 6.25 MG TAB PO SCH (20:05)
[2019-07-24 20:14] LABS: Hemoglobin 10.5 g/dL (14.0-18.0)
[2019-07-24] MEDS ORDERED: Pantoprazole 40 MG VIAL IVP SCH (21:00)
[2019-07-25] MEDS: Pantoprazole 80 MG in Sodium Chloride 0.9% 100 ML IVPB SCH ×2 (03:28→20:46)
[2019-07-25 06:20] LABS: Band 5 % (5-11); Eosinophils 1 % (0-10); Hemoglobin 9.8 g/dL (14.0-18.0); Lymphocytes 11 % (21-51); MDiff Complete? YES; Mean Corpuscular HGB CONC 33.5 g/dL (32.0-36.0); Mean Corpuscular Hemoglobin 31.3 pg (27.0-31.0); Mean Corpuscular Volume 93.5 fL (78.0-98.0); Monocytes 2 % (0-10); Neutrophil 81 % (42-75); Platelet Count 228 thou/uL (130-400); Red Blood Cell (RBC) Count 3.11 mill/uL (4.70-6.10); White Blood Cell (WBC) Count 15.3 thou/uL (4.8-10.8)
[2019-07-25 06:23] LABS: ALT (SGPT) 12 U/L (8-55); AST (SGOT) 12 U/L (5-34); Albumin 3.6 g/dL (3.4-4.8); Alkaline Phosphatase 54 U/L (40-110); Anion Gap 13 mmol/L (10-20); BUN (Urea Nitrogen) 69 mg/dL (8.4-25.7); Bilirubin, Total 0.7 mg/dL (0.2-1.2); Calc. Creatinine Clearance 74 mL/min (70-130); Calcium 8.9 mg/dL (7.8-10.44); Carbon Dioxide 24 mmol/L (23-31); Chloride 103 mmol/L (98-107); Estimated GFR-MDRD 56; Globulin 2.5 g/dL (2.4-3.5); Glucose 139 mg/dL (83-110); Potassium 3.7 mmol/L (3.5-5.1); Protein, Total 6.1 g/dL (5.8-8.1); Sodium 136 mmol/L (136-145)
[2019-07-25] MEDS: Oxybutynin ER 5 MG TAB PO SCH (07:56)
[2019-07-25] MEDS: Allopurinol 100 MG TAB PO SCH (07:56)
[2019-07-25] MEDS: Lisinopril 5 MG TAB PO SCH (07:56)
[2019-07-25] MEDS: Amlodipine 5 MG TAB PO SCH (07:56)
[2019-07-25] MEDS: Digoxin 0.125 MG TAB PO SCH (07:56)
[2019-07-25] MEDS: Carvedilol 6.25 MG TAB PO SCH ×2 (07:56→20:00)
[2019-07-25] MEDS ORDERED: Ondansetron HCl/PF 4 MG/2 ML Vial IVP PRN (10:47)
[2019-07-25] MEDS ORDERED: Promethazine HCl 25 MG/ML VIAL IM PRN (10:47)
[2019-07-25] MEDS ORDERED: Meperidine HCl/PF 25 MG/ML VIAL SLOW IVP PRN (10:47)
[2019-07-25] MEDS ORDERED: Promethazine HCl 25 MG/ML VIAL SLOW IVP PRN (10:47)
--- NOTE | 2019-07-25 12:30 | OP ---
DATE OF PROCEDURE: 07/25/2019 PROCEDURE PERFORMED: Esophagogastroduodenoscopy, diagnostic. INDICATIONS: 1. Melena. 2. Acute blood loss anemia. MEDICATIONS: See Anesthesia record. FINDINGS: After discussion of the risks, benefits, and alternatives of the procedure, informed consent was obtained and witnessed. Pre-endoscopic cardiopulmonary examination was satisfactory. Time-out was performed before sedation was achieved. Sedation was achieved with Anesthesia assistance in the endoscopy unit. A Pentax adult upper endoscope was placed into the oropharynx and passed through the cricopharyngeus under direct visualization. The esophageal mucosa appeared normal throughout with a normal-appearing Z-line. The endoscope was advanced into the stomach. Forward and retroflexed views of the entire gastric mucosa were obtained. There was no evidence of any esophageal or gastric varices. There was no evidence of any old blood or active bleeding within the stomach. The gastric fundus and gastric body appeared normal. In the gastric antrum, there is some [id number] gastritis with few small erosions, as well as one larger deep ulceration. This ulceration measures about 1 cm in diameter and is in the gastric antrum on the posterior wall. It is deep. The base is red in color, but does not have the appearance of a visible vessel, but rather has the appearance of submucosa. There was no overlying clot, no visible vessel. No endoscopic therapy was applied. The endoscope was advanced through the pylorus and into the first and second portions of the duodenum, which appeared normal. The upper endoscope was then completely withdrawn and the patient allowed to recover. The patient tolerated the procedure well. There were no immediate postprocedure complications. IMPRESSION: 1. Deep 1-cm antral ulcer, nonbleeding, with submucosa visible at the base, but no clot, no visible vessel. No endoscopic therapy was applied. 2. Erosive gastritis in the antrum. 3. Otherwise, normal esophagogastroduodenoscopy. 4. No old blood or active bleeding. RECOMMENDATIONS: 1. Continue the IV PPI, transition to Protonix 40 mg by mouth twice daily tomorrow, and continue this for at least 2 months. 2. Advance diet. 3. Follow up H and H tomorrow. 4. Check H pylori serology with tomorrow's labs. If positive, treat with triple therapy and confirm eradication. 5. The patient needs to stop all nonsteroidal anti-inflammatory drugs including the ibuprofen that he has been taking. 6. I would recommend holding the Xarelto for at least 1 week if possible. 7. We will plan to repeat EGD on an outpatient basis in 2 months, to assure ulcer healing. Job ID: [id number]
[2019-07-25] MEDS ORDERED: Lidocaine 1% PF 5 ML VIAL ONE (13:44)
[2019-07-25] MEDS ORDERED: PROPOFOL 200 MG/20 ML VIAL ONE (13:44)
--- NOTE | 2019-07-25 14:16 | PDOC.HOSPP ---
- Subjective Encounter Date: 07/25/19 Encounter Time: 14:14 Subjective: Mr. Beverly was seen today in follow-up of GI- bleed. He does not have any complaints today. He denies abdominal pain, and does not feel dizzy or lightheaded. - Objective Vital Signs & Weight: Vital Signs (12 hours) Temp Pulse Resp BP Pulse Ox 07/25/19 11:37 97.6 F 93 20 125/59 L 98 07/25/19 07:24 98.5 F 82 16 107/52 L 96 07/25/19 03:28 97.7 F 85 16 138/59 L 95 Weight Weight 218 lb I&O: 07/24/19 07/25/19 07/26/19 06:59 06:59 06:59 Intake Total 0 240 Output Total 1200 Balance -1200 240 Result Diagrams: 07/25/19 05:45 07/25/19 05:45 Hospitalist ROS - Medication Medications: Active Medications Generic Name Dose Route Start Last Admin Trade Name Freq PRN Reason Stop Dose Admin Allopurinol 100 mg 07/25/19 09:00 07/25/19 07:56 Zyloprim PO Not Given DAILY [facility] Amlodipine Besylate 2.5 mg 07/25/19 09:00 07/25/19 07:56 Norvasc PO Not Given DAILY [facility] Atorvastatin Calcium 40 mg 07/24/19 21:00 07/24/19 20:04 Lipitor PO Not Given [facility] Carvedilol 6.25 mg 07/24/19 21:00 07/25/19 07:56 Coreg PO Not Given BID [facility] Cholecalciferol 1,000 units 07/24/19 21:00 07/25/19 07:56 Vitamin D3 PO Not Given BID [facility] Digoxin 0.125 mg 07/25/19 09:00 07/25/19 07:56 Lanoxin PO Not Given DAILY [facility] Pantoprazole Sodium 80 mg/ 100 mls @ 10 mls/hr 07/24/19 17:45 07/25/19 03:28 Sodium Chloride IVPB 100 mls INF MARBIN Administration Lisinopril 5 mg 07/25/19 09:00 07/25/19 07:56 Zestril PO Not Given DAILY [facility] Oxybutynin Chloride 5 mg 07/25/19 09:00 07/25/19 07:56 Ditropan Xl PO Not Given DAILY MARBIN - Exam Eye: PERRL Heart: RRR, no murmur, no gallops, no rubs, normal peripheral pulses Respiratory: CTAB, no wheezes, no rales, no ronchi, normal chest expansion, no tachypnea, normal percussion Gastrointestinal: soft, non-tender, non-distended, normal bowel sounds, no palpable masses, no hepatomegaly Extremities: no cyanosis, no edema Hosp A/P (1) Gastric ulcer Code(s): K25.9 - GASTRIC ULCER, UNSP ACUTE OR CHRONIC, W/O HEMOR OR PERF Status: Acute (2) Hypertension Code(s): I10 - ESSENTIAL (PRIMARY) HYPERTENSION Status: Chronic (3) Atrial fibrillation Code(s): I48.91 - UNSPECIFIED ATRIAL FIBRILLATION Status: Chronic - Plan * Gastric Ulcer- continue Protonix IV- and H. Pylori antibody has been sent * Avoid NSIADs and hold Xarelto for 1 week * HTN- blood pressure is stable * AFIB- heart rate is stable ( Xarelto on HOLD) * Repeat H&H in the AM, and possibly home
[2019-07-25] MEDS: Atorvastatin Calcium 40 MG TAB PO SCH (19:59)
[2019-07-26 05:08] LABS: #Eosinphils 0.3 thou/uL (0.0-0.7); #Lymphocytes 1.7 thou/uL (1.20-3.40); #Monocytes 1.1 thou/uL (0.11-0.59); #Neutrophils 7.2 thou/uL (1.40-6.50); %Basophils 0.4 % (0.0-1.0); %Eosinophils 2.9 % (0.0-10.0); %Lymphocytes 16.6 % (21.0-51.0); %Monocytes 10.2 % (0.0-10.0); %Neutrophils 69.8 % (42.0-75.0); Hemoglobin 8.2 g/dL (14.0-18.0); Mean Corpuscular HGB CONC 34.1 g/dL (32.0-36.0); Mean Corpuscular Volume 93.8 fL (78.0-98.0); Platelet Count 165 thou/uL (130-400); RBC Distribution Width 13.1 % (11.5-14.5); Red Blood Cell (RBC) Count 2.55 mill/uL (4.70-6.10); White Blood Cell (WBC) Count 10.3 thou/uL (4.8-10.8)
[2019-07-26 05:30] LABS: ALT (SGPT) 12 U/L (8-55); AST (SGOT) 15 U/L (5-34); Albumin 3.1 g/dL (3.4-4.8); Alkaline Phosphatase 42 U/L (40-110); Anion Gap 11 mmol/L (10-20); BUN (Urea Nitrogen) 34 mg/dL (8.4-25.7); Bilirubin, Total 0.7 mg/dL (0.2-1.2); Calc. Creatinine Clearance 106 mL/min (70-130); Calcium 7.8 mg/dL (7.8-10.44); Carbon Dioxide 24 mmol/L (23-31); Chloride 103 mmol/L (98-107); Estimated GFR-MDRD 83; Globulin 2.2 g/dL (2.4-3.5); Glucose 103 mg/dL (83-110); Potassium 3.7 mmol/L (3.5-5.1); Protein, Total 5.3 g/dL (5.8-8.1); Sodium 134 mmol/L (136-145)
[2019-07-26] MEDS: Pantoprazole 80 MG in Sodium Chloride 0.9% 100 ML IVPB SCH (06:03)
[2019-07-26] MEDS: Digoxin 0.125 MG TAB PO SCH (08:47)
[2019-07-26] MEDS: Carvedilol 6.25 MG TAB PO SCH (08:47)
[2019-07-26] MEDS: Amlodipine 5 MG TAB PO SCH (08:47)
[2019-07-26] MEDS: Allopurinol 100 MG TAB PO SCH (08:47)
[2019-07-26] MEDS: Oxybutynin ER 5 MG TAB PO SCH (08:48)
[2019-07-26] MEDS: Lisinopril 5 MG TAB PO SCH (08:48)
[2019-07-26 12:08] VITALS: BP 101/49; TEMP 97.8
--- NOTE | 2019-07-26 14:48 | DIS ---
DATE OF ADMISSION: 07/25/2019 DATE OF DISCHARGE: 07/26/2019 DISCHARGE DIAGNOSES: 1. Upper gastrointestinal bleed secondary to gastric ulcer and chronic Xarelto and NSAIDs. 2. Acute blood loss anemia. 3. Acute kidney injury on chronic kidney disease, stage 2. 4. Chronic atrial fibrillation with current sinus mechanism. 5. Chronic anticoagulation with Xarelto. CONSULTATIONS: Dr. Johnson with GI Service. PERTINENT LABORATORY AND X-RAY FINDINGS: Creatinine ranged between 0.90 to 1.27, estimated GFR ranged between 56 to 83. Troponin I negative x1. BNP 15. Lipase 14. CBC showed a white blood cell count ranging between 10.3 to 17.6, hemoglobin ranged between 8.2 to 11.7, MCV 94. Influenza A and B antigen dated 07/24/2019 negative. Stool Hemoccult positive x1 on 07/24/2019. Portable chest x-ray dated 07/24/2019 showed no acute cardiopulmonary process. EGD dated 07/25/2019, showed a 1-cm antral ulcer, nonbleeding with submucosa visible at the base. Erosive gastritis in the antrum. HOSPITAL COURSE: The patient was admitted to the telemetry unit after initially presenting with blood in the stool in the context of chronic Xarelto and aspirin. The patient was positive on Hemoccult testing x1 and underwent evaluation by the GI Service. The patient proceeded to EGD evaluation showing a 1-cm gastric ulcer with associated erosive antral gastritis. The patient was continued on IV Protonix and discontinued on aspirin and Xarelto. Serial hemoglobin showed overall decreasing trend, however, the patient did not require blood transfusions during the hospital course. H pylori testing was submitted with results pending at the time of this dictation. Overall, the patient remained clinically stable and transitioned to Protonix 40 mg b.i.d. with recommendations to complete a 2-month course of therapy. The patient also recommended to treat for H pylori if the serology tests come back positive. I have examined the patient at the time of discharge and discussed followup instructions. The patient verbalizes understanding and in agreement and ready for discharge on 07/26/2019. DISCHARGE MEDICATIONS: 1. Protonix 40 mg p.o. b.i.d. x2 months. 2. Allopurinol 100 mg p.o. daily. 3. Amlodipine 2.5 mg p.o. daily. 4. Enteric-coated aspirin 81 mg p.o. daily. 5. Lipitor 40 mg p.o. at bedtime. 6. Coreg 6.25 mg p.o. b.i.d. 7. Vitamin D3 of 1000 units p.o. b.i.d. 8. Digoxin 0.125 mg p.o. daily. 9. Lisinopril 5 mg p.o. daily. 10. Multivitamin one tab p.o. daily. 11. Niacin 500 mg p.o. daily. 12. Oxybutynin 5 mg p.o. daily. 13. Coenzyme Q10 of 400 mg p.o. daily. 14. Xarelto 20 mg p.o. daily, hold until 08/02/2019. FOLLOWUP: The patient to follow up with his primary care provider, Naila Newby, within 7 days of discharge. The patient may follow up with Dr. Johnson with GI Service and to call his office for appointment, time, and date. The patient will follow up with Dr. Hsu on 08/06/2019. CONDITION ON DISCHARGE: Stable. ACTIVITY: Ad-ed. DIET: Heart healthy. CODE STATUS: Full. DISPOSITION: To home on 07/26/2019. TIME SPENT: Total time preparing and coordinating discharge, 32 minutes. Job ID: [id number]
--- NOTE | 2019-07-26 15:33 | EKG ---
Test Reason : Blood Pressure : / mmHG Vent. Rate : 086 BPM Atrial Rate : 086 BPM P-R Int : 160 ms QRS Dur : 092 ms QT Int : 356 ms P-R-T Axes : 062 008 -30 degrees QTc Int : 426 ms Sinus rhythm with frequent Premature ventricular complexes Incomplete right bundle branch block Abnormal ECG Confirmed by JAEL GOMEZ, FREDI ([id number]), subeditor SHAWN MCKINNEY ([id number]) on 07/26/2019 3:33:02 PM Referred By: Confirmed By:FREDI ELDER MD
[2019-07-30 15:11] LABS: H. pylori IgA ABS Less than 9.0 units (0.0-8.9); H. pylori IgG ABS 0.22 (0.00-0.79); H. pylori IgM ABS Less than 9.0 units (0.0-8.9)
== END 2019-07-26 16:33 | disposition home or self-care (01) | DRG 813 ==
LOC: ERS 08:28 → 2SW 12:59 → OBSVTOIN 07-25 16:22
PROVIDERS: ADMIT Family Medicine; ATTEND Family Medicine
PROC: 0DJ08ZZ Inspection of Upper Intestinal Tract, Via Natural or Artificial Opening Endoscopic (ICD-10-PCS; principal; 2019-07-25)
DX: D68.32 Hemorrhagic disorder due to extrinsic circulating anticoagulants (principal); K25.4 Chronic or unspecified gastric ulcer with hemorrhage; D62 Acute posthemorrhagic anemia; N17.9 Acute kidney failure, unspecified; I48.20 Chronic atrial fibrillation, unspecified; I12.9 Hypertensive chronic kidney disease with stage 1 through stage 4 chronic kidney disease, or unspecified chronic kidney disease; M10.9 Gout, unspecified; N18.2 Chronic kidney disease, stage 2 (mild); Z79.01 Long term (current) use of anticoagulants; Z87.891 Personal history of nicotine dependence
CPT/HCPCS: 36415; 71045; 80053; 81003; 81015; 82274; 82550; 83690; 83880; 84484; 85025; 87804; 93005; 96374; 96375; C9113; J2001; J2405; J2704; J3490

== ENCOUNTER 2020-05-25 22:12 | Emergency (ER) | payer MEDICARE ==
[2020-05-25 22:43] LABS: #Basophils 0.1 thou/uL (0.0-0.2); #Eosinphils 0.5 thou/uL (0.0-0.7); #Lymphocytes 1.2 thou/uL (1.20-3.40); #Monocytes 0.9 thou/uL (0.11-0.59); #Neutrophils 6.5 thou/uL (1.40-6.50); %Basophils 1.1 % (0.0-1.0); %Eosinophils 5.1 % (0.0-10.0); %Lymphocytes 13.1 % (21.0-51.0); %Monocytes 9.7 % (0.0-10.0); %Neutrophils 70.9 % (42.0-75.0); Hemoglobin 14.7 g/dL (14.0-18.0); Mean Corpuscular HGB CONC 33.3 g/dL (32.0-36.0); Mean Corpuscular Hemoglobin 32.1 pg (27.0-31.0); Mean Corpuscular Volume 96.4 fL (78.0-98.0); Mean Platelet Volume 6.7 fL (7.4-10.4); Platelet Count 241 thou/uL (130-400); RBC Distribution Width 12.2 % (11.5-14.5); Red Blood Cell (RBC) Count 4.59 mill/uL (4.70-6.10); White Blood Cell (WBC) Count 9.1 thou/uL (4.8-10.8)
--- NOTE | 2020-05-25 22:48 | RAD ---
RADIOGRAPH CHEST 1 VIEW: DATE: 05/25/2020 HISTORY: 74-year-old male with atrial fibrillation presents with palpitations and dyspnea FINDINGS: There are no airspace densities, pulmonary edema, pneumothorax, or cardiomegaly. The lateral costophr enic angles are sharp. IMPRESSION: No acute cardiopulmonary findings.
[2020-05-25 23:06] LABS: ALT (SGPT) 18 U/L (8-55); AST (SGOT) 21 U/L (5-34); Albumin 3.9 g/dL (3.4-4.8); Alkaline Phosphatase 75 U/L (40-110); Anion Gap 12 mmol/L (10-20); BUN (Urea Nitrogen) 21 mg/dL (8.4-25.7); Bilirubin, Total 0.6 mg/dL (0.2-1.2); Calc. Creatinine Clearance 0 mL/min (70-130); Calcium 9.4 mg/dL (7.8-10.44); Carbon Dioxide 26 mmol/L (23-31); Chloride 93 mmol/L (98-107); Estimated GFR-MDRD Greater than 90; Globulin 3.1 g/dL (2.4-3.5); Glucose 107 mg/dL (83-110); Potassium 4.3 mmol/L (3.5-5.1); Sodium 127 mmol/L (136-145)
[2020-05-25] MEDS ORDERED: Aspirin Chewable 81 MG TAB ONE (23:08)
[2020-05-26 02:04] LABS: Anion Gap 13 mmol/L (10-20); BUN (Urea Nitrogen) 25 mg/dL (8.4-25.7); Calc. Creatinine Clearance 0 mL/min (70-130); Calcium 8.9 mg/dL (7.8-10.44); Carbon Dioxide 25 mmol/L (23-31); Chloride 94 mmol/L (98-107); Estimated GFR-MDRD Greater than 90; Glucose 100 mg/dL (83-110); Potassium 4.4 mmol/L (3.5-5.1); Sodium 128 mmol/L (136-145)
--- NOTE | 2020-05-29 16:17 | EKG ---
Test Reason : Blood Pressure : / mmHG Vent. Rate : 070 BPM Atrial Rate : 070 BPM P-R Int : 166 ms QRS Dur : 102 ms QT Int : 398 ms P-R-T Axes : 063 028 039 degrees QTc Int : 429 ms Normal sinus rhythm Low voltage QRS Incomplete right bundle branch block Cannot rule out Anterior infarct , age undetermined Abnormal ECG Confirmed by RICHARD HARRY M.D. ([id number]), fashion editor SHAWN MCKINNEY ([id number]) on 05/29/2020 4:17:12 PM Referred By: Confirmed By:RICHARD HARRY M.D.
== END 2020-05-26 03:02 | disposition home or self-care (01) ==
LOC: ERS 22:12
DX: R00.2 Palpitations (principal); E78.5 Hyperlipidemia, unspecified; E78.00 Pure hypercholesterolemia, unspecified; I11.0 Hypertensive heart disease with heart failure; I50.9 Heart failure, unspecified; F32.9 Major depressive disorder, single episode, unspecified; Z87.891 Personal history of nicotine dependence; Z79.82 Long term (current) use of aspirin
CPT/HCPCS: 36415; 71045; 80048; 80053; 83735; 83880; 84484; 85025; 93005

== ENCOUNTER 2020-05-26 20:21 | Inpatient (IN) | payer MEDICARE ==
[2020-05-26] MEDS ORDERED: Aspirin Chewable 81 MG TAB ONE ×3 (20:52→20:53)
--- NOTE | 2020-05-26 21:22 | RAD ---
RADIOGRAPH CHEST 1 VIEW: DATE: 05/26/2020 HISTORY: 74-year-old male with palpitations, chest pain, and dyspnea FINDINGS: There are no airspace densities, pulmonary edema, pneumothorax, or cardiomegaly. The lateral costophr enic angles are sharp. IMPRESSION: No acute cardiopulmonary findings.
[2020-05-26 21:24] LABS: #Eosinphils 0.2 thou/uL (0.0-0.7); #Lymphocytes 1.4 thou/uL (1.20-3.40); #Monocytes 1.1 thou/uL (0.11-0.59); #Neutrophils 8.1 thou/uL (1.40-6.50); %Basophils 0.4 % (0.0-1.0); %Eosinophils 2.2 % (0.0-10.0); %Lymphocytes 13.2 % (21.0-51.0); %Monocytes 9.8 % (0.0-10.0); %Neutrophils 74.4 % (42.0-75.0); Hemoglobin 12.9 g/dL (14.0-18.0); Mean Corpuscular HGB CONC 34.3 g/dL (32.0-36.0); Mean Corpuscular Hemoglobin 33.5 pg (27.0-31.0); Mean Corpuscular Volume 97.5 fL (78.0-98.0); Mean Platelet Volume 7.1 fL (7.4-10.4); Platelet Count 234 thou/uL (130-400); RBC Distribution Width 12.2 % (11.5-14.5); Red Blood Cell (RBC) Count 3.84 mill/uL (4.70-6.10); White Blood Cell (WBC) Count 10.9 thou/uL (4.8-10.8)
[2020-05-26 21:32] LABS: ALT (SGPT) 17 U/L (8-55); AST (SGOT) 18 U/L (5-34); Albumin 3.7 g/dL (3.4-4.8); Alkaline Phosphatase 62 U/L (40-110); Anion Gap 14 mmol/L (10-20); BUN (Urea Nitrogen) 41 mg/dL (8.4-25.7); Bilirubin, Total 0.6 mg/dL (0.2-1.2); Calc. Creatinine Clearance 0 mL/min (70-130); Calcium 9.2 mg/dL (7.8-10.44); Carbon Dioxide 26 mmol/L (23-31); Chloride 94 mmol/L (98-107); Estimated GFR-MDRD Greater than 90; Globulin 2.9 g/dL (2.4-3.5); Glucose 94 mg/dL (83-110); Magnesium 1.8 mg/dL (1.6-2.6); Potassium 4.2 mmol/L (3.5-5.1); Protein, Total 6.6 g/dL (5.8-8.1); Sodium 130 mmol/L (136-145)
--- NOTE | 2020-05-26 22:56 | PDOC.BPN ---
- Brief Progress Note [id number] HP dictated
[2020-05-27 00:56] LABS: Troponin I Less than 0.010 ng/mL (< 0.028)
[2020-05-27 01:52] VITALS: BMI 33.7
--- NOTE | 2020-05-27 02:22 | HP ---
CHIEF COMPLAINT: Dizziness and near syncope. HISTORY OF PRESENT ILLNESS: Mr. Beverly is a 74-year-old male, with past medical history of atrial fibrillation, on Xarelto; congestive heart failure; hypertension; and hyperlipidemia, among others, presented to the emergency room with palpitations, dizziness, and near syncope. Patient was evaluated yesterday for a similar complaint in the emergency room and discharged home. At that time, his sodium was 128, repeat sodium today is 130. It was reported that patient was in AFib by EMS. In the emergency room, patient was in sinus rhythm. Initial cardiac workup, including troponin and EKG, no acute finding, troponin 0.01. Sodium today is 130. Magnesium is 1.8. WBC count is 10.9, hemoglobin 12.9, and platelets 234. Chest x-ray, no acute findings. Patient is being admitted to hospital for further management. PAST MEDICAL HISTORY: As mentioned above in history of present illness. PAST SURGICAL HISTORY: 1. Cardiac ablation. 2. Vein removed from left calf due to left leg swelling from varicose veins. PAST PSYCHIATRIC HISTORY: Includes depression. SOCIAL HISTORY: Patient drinks everyday, sometimes six cans or whatever? He quit smoking 10 years ago. FAMILY HISTORY: Reviewed and noncontributory. HOME MEDICATIONS: See home medication reconciliation form for updated medications. ALLERGIES: NO KNOWN ALLERGIES. REVIEW OF SYSTEMS: Review of 14 systems negative, except what is mentioned in history of present illness. PHYSICAL EXAMINATION: GENERAL: Patient is awake, alert, does not appear to be in acute distress. VITAL SIGNS: Blood pressure is 120/73, respiratory rate is 24, oxygen saturation is 98% on room air, and temperature 97.9. HEAD AND NECK: Normocephalic, atraumatic. Neck is supple. No JVD. CHEST: Fair bilateral air entry. HEART: S1, S2. Regular. ABDOMEN: Soft, nontender. Bowel sounds present. NEUROLOGIC: Awake, alert, and oriented x3. No focal deficits. PSYCH: Unable to assess. EXTREMITIES: No clubbing or cyanosis. GENITOURINARY: No suprapubic tenderness. No flank tenderness. SKIN: No apparent rash. LABORATORY DATA: As mentioned above in history of present illness. IMAGING STUDIES: As mentioned above in history of present illness. ASSESSMENT: 1. Near syncope. 2. Palpitations. 3. Paroxysmal atrial fibrillation. 4. Hyponatremia. 5. Hyperlipidemia. 6. Congestive heart failure, chronic. 7. Hypertension. PLAN: 1. Admit. 2. Telemonitor. 3. Orthostatic vital signs. 4. Serial troponins. 5. 2D echo. 6. 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 for evaluation and further recommendations. 7. Monitor electrolytes. 8. Reconcile home medications. 9. DVT prophylaxis. Continue home anticoagulation. 10. Expected length of stay, 1 midnight, if patient is stable and further workup negative. Job ID: [id number]
[2020-05-27 04:49] LABS: #Eosinphils 0.3 thou/uL (0.0-0.7); #Lymphocytes 1.4 thou/uL (1.20-3.40); #Monocytes 1.2 thou/uL (0.11-0.59); #Neutrophils 6.9 thou/uL (1.40-6.50); %Basophils 0.5 % (0.0-1.0); %Eosinophils 2.7 % (0.0-10.0); %Lymphocytes 14.5 % (21.0-51.0); %Monocytes 12.3 % (0.0-10.0); %Neutrophils 70.1 % (42.0-75.0); Hemoglobin 11.3 g/dL (14.0-18.0); Mean Corpuscular HGB CONC 34.2 g/dL (32.0-36.0); Mean Corpuscular Hemoglobin 33.6 pg (27.0-31.0); Mean Corpuscular Volume 98.3 fL (78.0-98.0); Mean Platelet Volume 7.3 fL (7.4-10.4); Platelet Count 186 thou/uL (130-400); RBC Distribution Width 12.1 % (11.5-14.5); Red Blood Cell (RBC) Count 3.38 mill/uL (4.70-6.10); White Blood Cell (WBC) Count 9.8 thou/uL (4.8-10.8)
[2020-05-27 05:03] LABS: Troponin I Less than 0.010 ng/mL (< 0.028)
[2020-05-27 05:06] LABS: BUN (Urea Nitrogen) 39 mg/dL (8.4-25.7); Calc. Creatinine Clearance 140 mL/min (70-130); Calcium 8.3 mg/dL (7.8-10.44); Carbon Dioxide 20 mmol/L (23-31); Chloride 97 mmol/L (98-107); Estimated GFR-MDRD Greater than 90; Glucose 85 mg/dL (83-110); Sodium 129 mmol/L (136-145)
[2020-05-27 05:16] LABS: Anion Gap 16 mmol/L (10-20)
[2020-05-27] MEDS: Famotidine 20 MG TAB PO SCH ×2 (08:23→20:08)
[2020-05-27] MEDS: Cholecalciferol 1,000 UNITS (25 MCG) TAB PO SCH ×2 (08:23→20:08)
[2020-05-27] MEDS: Ubidecarenone 50 MG CAP PO SCH (08:24)
[2020-05-27] MEDS: Multivitamin W/ Minerals 1 TAB PO SCH (08:24)
[2020-05-27] MEDS: Allopurinol 100 MG TAB PO SCH (08:24)
[2020-05-27] MEDS ORDERED: Lisinopril 5 MG TAB PO SCH (09:00)
[2020-05-27] MEDS ORDERED: Non-Formulary Item 1 EACH (Cholecalciferol (Vitamin D3) [Vitamin D] 1000 UNIT Capsule) PO SCH (09:00)
[2020-05-27] MEDS ORDERED: Amlodipine 5 MG TAB PO SCH (09:00)
[2020-05-27] MEDS ORDERED: Non-Formulary Item 1 EACH (Ubidecarenone [Co Q-10] 400 MG Capsule) PO SCH (09:00)
[2020-05-27] MEDS ORDERED: Digoxin 0.5 MG/2 ML AMP SLOW IVP SCH (12:30)
[2020-05-27] MEDS: Rivaroxaban 10 MG TAB PO SCH (13:53)
[2020-05-27 14:05] LABS: SARS-CoV-2 MS2 Positive; SARS-CoV-2 N Gene Negative; SARS-CoV-2 S Gene Negative; SARS-CoV-2 by NAA Not Detected (NotDetected); SARS-CoV-2 orf1ab Negative
[2020-05-27] MEDS: Acetaminophen 325 MG TAB PO PRN (14:17)
[2020-05-27] MEDS ORDERED: Diltiazem 125 MG in Sodium Chloride 0.9% 100 ML IVPB SCH ×2 (14:45→15:45)
[2020-05-27] MEDS ORDERED: Diltiazem HCl 125 MG, Admixture Fee 1 EACH in Sodium Chloride 0.9% 100 ML IVPB SCH (14:45)
[2020-05-27] MEDS: Amiodarone 200 MG TAB PO SCH ×2 (15:34→20:08)
--- NOTE | 2020-05-27 16:08 | PDOC.HOSPP ---
- Subjective Encounter Date: 05/27/20 Encounter Time: 16:07 Subjective: Patient seen for follow-up regarding A. fib with RVR. He denies chest pain or shortness of breath. - Objective Vital Signs & Weight: Vital Signs (12 hours) Temp Pulse Resp BP BP Pulse Ox 05/27/20 14:10 98.2 F 110 H 17 95 05/27/20 14:04 87/58 L 05/27/20 12:44 159 H 05/27/20 11:00 98.8 F 153 H 21 H 108/55 L 96 05/27/20 08:29 97 05/27/20 07:00 98.0 F 78 15 97/61 97 Weight Weight 242 lb 1.6 oz I&O: 05/26/20 05/27/20 05/28/20 06:59 06:59 06:59 Intake Total 270 Output Total 675 Balance -405 Result Diagrams: 05/27/20 04:12 05/27/20 04:12 Additional Labs: Labs and MAR reviewed by me EKG Reviewed by me: Yes (Atrial fibrillation on telemetry) Hospitalist ROS - Review of Systems Constitutional: reports: weakness Respiratory: denies: cough, dry, shortness of breath, hemoptysis, SOB with excertion, pleuritic pain, sputum, wheezing Cardiovascular: denies: chest pain, palpitations, orthopnea, paroxysmal noc. dyspnea, edema, light headedness Gastrointestinal: denies: nausea, vomiting, abdominal pain, diarrhea, constipation, melena, hematochezia Genitourinary: denies: dysuria, frequency, incontinence, hematuria, retention Skin: denies: rash, lesions, tati, bruising - Medication Medications: Active Medications Generic Name Dose Route Start Last Admin Trade Name Freq PRN Reason Stop Dose Admin Acetaminophen 650 mg 05/26/20 22:15 05/27/20 14:17 Acetaminophen 325 Mg Tab PO 650 mg Q4H PRN Administration Headache/Fever/Mild Pain (1-3) Allopurinol 100 mg 05/27/20 09:00 05/27/20 08:24 Allopurinol 100 Mg Tab PO 100 mg DAILY MARBIN Administration Amiodarone HCl 400 mg 05/27/20 15:00 05/27/20 15:34 Amiodarone 200 Mg Tab PO 400 mg TID MARBIN Administration Cholecalciferol 1,000 units 05/27/20 09:00 05/27/20 08:23 Cholecalciferol 1,000 Units (25 Mcg) Tab PO 1,000 units BID MARBIN Administration Coenzyme Q10 400 mg 05/27/20 09:00 05/27/20 08:24 Ubidecarenone 50 Mg Cap PO 400 mg DAILY MARBIN Administration Famotidine 20 mg 05/27/20 09:00 05/27/20 08:23 Famotidine 20 Mg Tab PO 20 mg BID MARBIN Administration Iron/Minerals/Multivitamins 1 tab 05/27/20 09:00 05/27/20 08:24 Multivitamin W/ Minerals 1 Tab PO 1 tab DAILY MARBIN Administration Rivaroxaban 20 mg 05/27/20 14:00 05/27/20 13:53 Rivaroxaban 10 Mg Tab PO 20 mg 1400 MARBIN Administration - Exam General Appearance: awake alert Eye: anicteric sclera ENT: moist mucosa Neck: supple, symmetric, no thyromegaly, no lymphadenopathy Heart: no gallops, no rubs, normal peripheral pulses, irregular Respiratory: CTAB, no wheezes, no rales, no ronchi Gastrointestinal: soft, non-tender, non-distended, normal bowel sounds Skin: no rashes Psychiatric: normal affect, normal behavior, A&O x 3 Hosp A/P (1) Atrial fibrillation with rapid ventricular response Code(s): I48.91 - UNSPECIFIED ATRIAL FIBRILLATION Status: Acute (2) Hypotension Status: Acute (3) Congestive heart failure Code(s): I50.9 - HEART FAILURE, UNSPECIFIED Status: Chronic (4) Dyslipidemia Code(s): E78.5 - HYPERLIPIDEMIA, UNSPECIFIED Status: Chronic - Plan Patient's patient's presentation most likely secondary to hypotension secondary from antihypertensive use. Patient is now in atrial fibrillation with rapid ventricular response. He is receiving oral amiodarone and is being started on Cardizem drip without Cardizem bolus. Monitor on telemetry. Resume home medications except for antihypertensives. Monitor vital signs and titrate antihypertensives as needed.Continue atorvastatin 40 mg at bedtime continue digoxin 0.125 mg daily. Continue rivaroxaban 20 mg daily.
--- NOTE | 2020-05-27 17:12 | CON ---
DATE OF CONSULTATION: 05/27/2020 REASON FOR CONSULTATION: Atrial fibrillation with a rapid rate. HISTORY OF PRESENT ILLNESS: Mr. Beverly is a 74-year-old gentleman. He has a history of atrial flutter in the past with successful ablation. On this occasion, he was admitted to the hospital with palpitations and rapid heart rate with near syncope. Apparently, he had been here in the emergency room recently and was released home, but had recurrence and had to be admitted. The patient has had recurrent atrial fibrillation here with a rates up in the 160, even in the 170 range. The patient is hypotensive when his heart rate goes extremely rapidly. The patient did have some recurrent atrial fibrillation this afternoon with extremely rapid rate. He was in sinus rhythm earlier this morning. There is no chest pain with that, but he does not tolerate the fibrillation well at all. MEDICATIONS: At home, he is already on beta maria g, carvedilol 12.5 mg twice a day as an outpatient. Other medicines, please see nurses' note. ALLERGIES: NONE KNOWN. SOCIAL HISTORY: No alcohol or tobacco. REVIEW OF SYSTEMS: CONSTITUTIONAL: No significant weight gain or loss. VISION: No changes. HEARING: No changes. PULMONARY: No cough or wheezing. GASTROINTESTINAL: No nausea, vomiting, or diarrhea. SKIN: No rashes. NEUROLOGIC: No unilateral weakness or numbness. PSYCHIATRIC: No unusual depression or anxiety. PERTINENT LABORATORY DATA: Sodium is 129 and potassium 4.0. Troponins negative. ASSESSMENT: 1. Paroxysmal atrial fibrillation with a very rapid ventricular response. 2. History of diastolic congestive heart failure. 3. History of atrial flutter. PLAN: The patient is tolerating the tachycardia very poorly when he goes very rapidly. There is only limited options which medicines would be appropriate. I doubt that Multaq would be successful in controlling his heart rate when he goes into this, especially since the beta blockers alone were totally ineffective. The best option is likely amiodarone. We will start oral loading. In the meantime, we will give intravenous Cardizem and continue anticoagulation with Xarelto. We will follow with you. I did discuss with him there is some potential toxicity of the amiodarone, but I think it is the best medicine for him since he does not tolerate the atrial fibrillation well when his rates go rapid. Job ID: [id number]
[2020-05-27] MEDS: Atorvastatin Calcium 40 MG TAB PO SCH (20:08)
[2020-05-27] MEDS: Melatonin 3 MG TAB PO SCH (20:38)
[2020-05-27] MEDS ORDERED: Sodium Chloride 0.9% 500 ML IVPB SCH (20:45)
[2020-05-28] MEDS: Acetaminophen 325 MG TAB PO PRN (05:02)
[2020-05-28] MEDS: Amiodarone 200 MG TAB PO SCH ×3 (09:07→20:06)
[2020-05-28] MEDS: Allopurinol 100 MG TAB PO SCH (09:07)
[2020-05-28] MEDS: Multivitamin W/ Minerals 1 TAB PO SCH (09:09)
[2020-05-28] MEDS: Famotidine 20 MG TAB PO SCH ×2 (09:10→20:06)
[2020-05-28] MEDS: Ubidecarenone 50 MG CAP PO SCH (09:11)
[2020-05-28] MEDS: Cholecalciferol 1,000 UNITS (25 MCG) TAB PO SCH ×2 (09:14→20:07)
--- NOTE | 2020-05-28 14:31 | PRG ---
DATE OF SERVICE: 05/28/2020 SUBJECTIVE: Mr. Beverly is resting comfortably. Feels well. He has been maintaining sinus rhythm since yesterday. The IV diltiazem was stopped yesterday due to the heart rate being low. OBJECTIVE: VITAL SIGNS: Blood pressure 123/63, pulse 72. LUNGS: Clear. CARDIAC: Normal S1, normal S2. ABDOMEN: Soft and nontender. EXTREMITIES: No clubbing or cyanosis. There is no edema. ASSESSMENT: Paroxysmal atrial fibrillation with a rapid ventricular response, which he tolerates poorly, currently maintaining sinus rhythm. PLAN: 1. Continue amiodarone loading. 2. Echo today. 3. Should be able to be released home tomorrow morning. Job ID: [id number]
[2020-05-28] MEDS: Rivaroxaban 10 MG TAB PO SCH (14:40)
[2020-05-28] MEDS: GLUCOSAMINE CHONDROITIN MSM PO SCH (15:50)
--- NOTE | 2020-05-28 16:32 | PDOC.HOSPP ---
- Subjective Encounter Date: 05/28/20 Encounter Time: 07:00 Subjective: Patient seen for follow-up regarding atrial fibrillation. He reports feeling much better today. Denies chest pain or shortness of breath. - Objective Vital Signs & Weight: Vital Signs (12 hours) Temp Pulse Resp BP BP Pulse Ox 05/28/20 15:00 98.5 F 71 18 133/68 97 05/28/20 12:20 98.0 F 72 16 123/63 96 05/28/20 09:05 98 05/28/20 07:00 98.1 F 62 18 122/55 L 98 Weight Weight 242 lb 1.6 oz I&O: 05/27/20 05/28/20 05/29/20 06:59 06:59 06:59 Intake Total 270 Output Total 675 325 Balance -405 -325 Result Diagrams: 05/27/20 04:12 05/27/20 04:12 Additional Labs: I reviewed patient's labs and MAR EKG Reviewed by me: Yes (Normal sinus rhythm on telemetry) Hospitalist ROS - Review of Systems Cardiovascular: denies: chest pain, palpitations, orthopnea, paroxysmal noc. dyspnea, edema, light headedness Gastrointestinal: denies: nausea, vomiting, abdominal pain, diarrhea, constipation, melena, hematochezia Skin: denies: rash, lesions, tati - Medication Medications: Active Medications Generic Name Dose Route Start Last Admin Trade Name Freq PRN Reason Stop Dose Admin Acetaminophen 650 mg 05/26/20 22:15 05/28/20 05:02 Acetaminophen 325 Mg Tab PO 650 mg Q4H PRN Administration Headache/Fever/Mild Pain (1-3) Allopurinol 100 mg 05/27/20 09:00 05/28/20 09:07 Allopurinol 100 Mg Tab PO 100 mg DAILY MARBIN Administration Amiodarone HCl 400 mg 05/27/20 15:00 05/28/20 14:40 Amiodarone 200 Mg Tab PO 400 mg TID MARBIN Administration Atorvastatin Calcium 40 mg 05/27/20 21:00 05/27/20 20:08 Atorvastatin Calcium 40 Mg Tab PO 40 mg HS MARBIN Administration Cholecalciferol 1,000 units 05/27/20 09:00 05/28/20 09:14 Cholecalciferol 1,000 Units (25 Mcg) Tab PO 1,000 units BID MARBIN Administration Coenzyme Q10 400 mg 05/27/20 09:00 05/28/20 09:11 Ubidecarenone 50 Mg Cap PO 400 mg DAILY MARBIN Administration Famotidine 20 mg 05/27/20 09:00 05/28/20 09:10 Famotidine 20 Mg Tab PO 20 mg BID MARBIN Administration Iron/Minerals/Multivitamins 1 tab 05/27/20 09:00 05/28/20 09:09 Multivitamin W/ Minerals 1 Tab PO 1 tab DAILY MARBIN Administration Melatonin 3 mg 05/27/20 21:00 05/27/20 20:38 Melatonin 3 Mg Tab PO 3 mg HS MARBIN Administration Rivaroxaban 20 mg 05/27/20 14:00 05/28/20 14:40 Rivaroxaban 10 Mg Tab PO 20 mg 1400 MARBIN Administration - Exam General Appearance: awake alert Eye: anicteric sclera ENT: moist mucosa Neck: supple Heart: RRR Respiratory: CTAB Gastrointestinal: soft, non-tender Skin: no rashes Psychiatric: normal affect, normal behavior Hosp A/P (1) Atrial fibrillation with rapid ventricular response Code(s): I48.91 - UNSPECIFIED ATRIAL FIBRILLATION Status: Acute (2) Hyponatremia Code(s): E87.1 - HYPO-OSMOLALITY AND HYPONATREMIA Status: Acute (3) Congestive heart failure Code(s): I50.9 - HEART FAILURE, UNSPECIFIED Status: Chronic (4) Dyslipidemia Code(s): E78.5 - HYPERLIPIDEMIA, UNSPECIFIED Status: Chronic (5) Hypotension Status: Resolved - Plan 74-year-old gentleman admitted to the hospital for hypotension most likely s econdary to antihypertensive use. On May 27, 2020, patient was found to be in atrial fibrillation with rapid ventricular response. He has a known history of atrial fibrillation. He was seen by cardiology service. He was started on IV Cardizem. He converted to normal sinus rhythm. Patient has clinically improved. Patient is being loaded on amiodarone. Continue to monitor on telemetry. Monitor vital signs and titrate antihypertensives as needed. Continue atorvastatin 40 mg at bedtime continue digoxin 0.125 mg daily. Continue rivaroxaban 20 mg daily. Cardiology service following. Likely home on May 29, 2020.
[2020-05-28] MEDS: Atorvastatin Calcium 40 MG TAB PO SCH (20:06)
[2020-05-28] MEDS: Melatonin 3 MG TAB PO SCH (20:06)
[2020-05-29 07:42] VITALS: TEMP 97.6
[2020-05-29] MEDS: Amiodarone 200 MG TAB PO SCH (09:03)
[2020-05-29] MEDS: Famotidine 20 MG TAB PO SCH (09:03)
[2020-05-29] MEDS: Multivitamin W/ Minerals 1 TAB PO SCH (09:03)
[2020-05-29] MEDS: Cholecalciferol 1,000 UNITS (25 MCG) TAB PO SCH (09:04)
[2020-05-29] MEDS: Ubidecarenone 50 MG CAP PO SCH (09:04)
[2020-05-29] MEDS: Allopurinol 100 MG TAB PO SCH (09:04)
--- NOTE | 2020-05-29 09:04 | PRG ---
DATE OF SERVICE: 05/29/2020 SUBJECTIVE: Mr. Beverly is doing well today. No complaints. OBJECTIVE: VITAL SIGNS: Blood pressure is 112/54 and pulse 64 and regular, it is sinus. LUNGS: Clear. CARDIAC: Normal S1 and normal S2. ABDOMEN: Soft and nontender. EXTREMITIES: There is no edema. ASSESSMENT: 1. Paroxysmal atrial fibrillation with a rapid rate controlled on amiodarone, tolerated very poorly when he did go into atrial fibrillation. 2. Hypertension, controlled. PLAN: 1. He can go home on amiodarone 200 mg twice a day. 2. He has been taken off carvedilol. 3. Continue Xarelto. 4. He will see us in the office in two or three weeks. Job ID: [id number]
[2020-05-29 09:53] LABS: Anion Gap 13 mmol/L (10-20); BUN (Urea Nitrogen) 24 mg/dL (8.4-25.7); Calc. Creatinine Clearance 128 mL/min (70-130); Calcium 8.4 mg/dL (7.8-10.44); Carbon Dioxide 24 mmol/L (23-31); Chloride 100 mmol/L (98-107); Estimated GFR-MDRD Greater than 90; Glucose 162 mg/dL (83-110); Potassium 3.7 mmol/L (3.5-5.1); Sodium 133 mmol/L (136-145)
--- NOTE | 2020-05-29 10:38 | CT ---
CT head noncontrast HISTORY: Hypotension. Dizziness. FINDINGS: There is no evidence of acute intracranial hemorrhage or infarct. Mild diffuse cortical atr ophy and chronic ischemic small vessel disease. There is no mass effect or shift of midline structures. Calcification within the arterial structures of the brain base. IMPRESSION : No acute intracranial abnormalities are demonstrated. Atherosclerosis.
[2020-05-29 11:37] VITALS: BP 126/61
--- NOTE | 2020-05-29 11:56 | PDOC.DS.DS ---
Provider - Provider Date of Admission: 05/27/20 14:11 Date of Discharge: 05/29/20 Admitting Provider: Polo Carver MD Consultations: Cardiology Primary Care Physician: RENAN Delarosa Course - Hospital Course Hospital Course: Mr. Sunil Beverly is a 74-year-old patient who was admitted to the hospital with dizziness and lightheadedness. He originally was evaluated earlier in the emergency room and was able to go home after a fairly unremarkable evaluation. He came back into the emergency room because of persistent dizziness and was promptly admitted to the medicine team for further stabilization. He was found to be hyponatremic with a serum sodium that was around 127. He also was found to have paroxysmal atrial fibrillation and he was then seen in consult by cardiology. He was placed on amiodarone and also received some digoxin. He also received Xarelto. He seems to be back in sinus rhythm today on discharge. He otherwise has been feeling better. He denied any further dizziness and lightheadedness. He is ambulatory without any issues. CT of the head done was normal without any acute findings. We went ahead and discharge him home today. He will follow up with cardiology as outpatient. Pertinent Studies: Echocardiogram showed a preserved ejection fraction. Resuscitation Status: 05/26/20 22:15 Resuscitation Status Routine Resuscitation Status: FULL: Full Resuscitation - Labs Lab Results: 05/27/20 04:12 05/29/20 09:13 Abnormal Lab Results - Last 48 hrs 05/29/20 09:13: Sodium 133 L - Physical Exam Vitals: Vital Signs (12 hours) Temp Pulse Resp BP BP BP BP 05/29/20 11:37 97.6 F 74 14 126/61 05/29/20 08:00 139/62 134/62 155/75 H 05/29/20 07:41 97.6 F 64 16 139/71 05/29/20 03:41 97.5 F L 62 16 112/54 L Pulse Ox 05/29/20 11:37 100 05/29/20 08:00 96 05/29/20 07:41 96 05/29/20 03:41 96 Weight Weight 242 lb 1.6 oz Physical Exam: The patient was seen and examined on the day of discharge. Problem - Discharge Plan Assessment: Patient was seen at bedside today and he is doing really well. He is going to discharge home today. Plan of Treatment: Outpatient follow-up with cardiology services. Plan - Discharge Medications Prescriptions: Amiodarone [Cordarone] 200 mg PO BID #60 tab Rivaroxaban [Xarelto] 20 mg PO DAILY #30 tab Home Medications: Medication Instructions Recorded Confirmed Type Amlodipine Besylate [amLODIPine 2.5 mg PO DAILY 03/29/17 05/27/20 History Besylate] Atorvastatin Calcium 40 mg PO HS 03/29/17 05/27/20 History Carvedilol [Coreg] 12.5 mg PO BID 03/29/17 05/27/20 History Glucosamine/MSM/Chondroitin A 2 tablet PO DAILY 03/29/17 05/27/20 History [Glucosamine Chondroitin MSM] Amiodarone [Cordarone] 200 mg PO BID #60 tab 05/29/20 Rx Rivaroxaban [Xarelto] 20 mg PO DAILY #30 tab 05/29/20 Rx Allergies: No Known Allergies Allergy (Verified 07/24/19 13:38) - Discharge Instructions Activity:: Activity as Tolerated Nourishment:: Heart Healthy Diet Therapies:: Home Health Equipment/Supplies:: Not Applicable - Follow up Plan Referrals: Naila Newby FNP [Primary Care Provider] - Disposition: HOME Quality - Care Measures CORE MEASURES:: N/A
--- NOTE | 2020-05-29 16:35 | EKG ---
Test Reason : SOB Blood Pressure : / mmHG Vent. Rate : 081 BPM Atrial Rate : 081 BPM P-R Int : 166 ms QRS Dur : 090 ms QT Int : 368 ms P-R-T Axes : 059 072 052 degrees QTc Int : 427 ms Sinus rhythm with occasional Premature ventricular complexes Low voltage QRS RSR' or QR pattern in V1 suggests right ventricular conduction delay Nonspecific ST and T wave abnormality Abnormal ECG Confirmed by OLGA EDWARDS DO ([id number]), design editor SHAWN MCKINNEY ([id number]) on 05/29/2020 4:35:12 PM Referred By: Confirmed By:OLGA EDWARDS DO
[2020-05-29] MEDS ORDERED: Amiodarone 200 MG TAB PO SCH (21:00)
== END 2020-05-29 13:55 | disposition home or self-care (01) | DRG 309 ==
LOC: ERS 20:21 → 2SE 22:25 → OBSVTOIN 05-27 14:11
PROVIDERS: ADMIT Internal Medicine; ATTEND Hospitalist
DX: I48.0 Paroxysmal atrial fibrillation (principal); E87.1 Hypo-osmolality and hyponatremia; I50.32 Chronic diastolic (congestive) heart failure; Z20.828 Contact with and (suspected) exposure to other viral communicable diseases; I11.0 Hypertensive heart disease with heart failure; E78.5 Hyperlipidemia, unspecified; E78.00 Pure hypercholesterolemia, unspecified; I95.2 Hypotension due to drugs; T46.5X5A Adverse effect of other antihypertensive drugs, initial encounter; Z87.891 Personal history of nicotine dependence; Z79.899 Other long term (current) drug therapy; R00.2 Palpitations; F32.9 Major depressive disorder, single episode, unspecified; Z79.82 Long term (current) use of aspirin
CPT/HCPCS: 36415; 70450; 71045; 80048; 80053; 83735; 83880; 84484; 85025; 87635; 93005; 93306; 94760; 96374; G0378; J1160; J3490; J7030; U0003

== ENCOUNTER 2020-08-03 14:35 | Outpatient (CLI) | payer MEDICARE ==
--- NOTE | 2020-08-03 14:52 | RAD ---
Exam: XR Knee Rt 4 View STANDARD HISTORY: Right knee pain. COMPARISON: None FINDINGS: Minimal scattered osteophytes are seen about the knee. No acute fracture or dislocation is identified . No significant joint space narrowing is appreciated. Suggestion of small suprapatellar knee joint effusion. Vascular calcifications are seen posterior to the knee. IMPRESSION: Minimal osteoarthritis right knee. No acute osseous abnormality is seen.
== END 2020-08-03 14:36 | disposition home or self-care (01) ==
LOC: RAD-FRANK 14:35
PROVIDERS: ATTEND Nurse Practitioner Family
DX: M25.561 Pain in right knee (principal); M17.11 Unilateral primary osteoarthritis, right knee

== ENCOUNTER 2021-01-13 05:45 | Emergency (ER) | payer MEDICARE | END 2021-01-13 09:01 | disposition home or self-care (01) | LOC: ERS 05:45 | DX: R07.81 Pleurodynia (principal); M25.531 Pain in right wrist; E78.5 Hyperlipidemia, unspecified; I11.0 Hypertensive heart disease with heart failure; I50.9 Heart failure, unspecified; I48.91 Unspecified atrial fibrillation; Z87.891 Personal history of nicotine dependence; Z79.899 Other long term (current) drug therapy; W18.30XA Fall on same level, unspecified, initial encounter | CPT/HCPCS: 71250 ==

== ENCOUNTER 2021-08-10 11:28 | Outpatient (CLI) | payer MEDICARE ==
[2021-08-10 12:34] LABS: Hemoglobin 16.1 g/dL (13.5-17.5); Mean Corpuscular HGB CONC 34.3 g/dL (32.0-36.0); Mean Corpuscular Hemoglobin 32.4 pg (27.0-33.0); Mean Corpuscular Volume 94.6 fl (81.2-95.1); Mean Platelet Volume 9.5 fl (7.4-10.4); Platelet Count 217 10x3/uL (150-450); RBC Distribution Width 13.5 % (11.5-14.5); Red Blood Cell (RBC) Count 4.97 10x6/uL (4.32-5.72); White Blood Cell (WBC) Count 10.4 10x3/uL (3.5-10.5)
[2021-08-10 12:46] LABS: INR-International Normal Ratio 1.6; PTT 50.1 sec (22.0-33.0); Prothrombin Time 17.1 sec (9.5-12.1)
[2021-08-10 12:50] LABS: Anion Gap 14 mmol/L (10-20); BUN (Urea Nitrogen) 14 mg/dL (8.4-25.7); Calc. Creatinine Clearance 0 mL/min (70-130); Calcium 9.1 mg/dL (7.8-10.44); Carbon Dioxide 28 mmol/L (23-31); Chloride 97 mmol/L (98-107); Glucose 101 mg/dL (83-110); Potassium 4.3 mmol/L (3.5-5.1); Sodium 135 mmol/L (136-145)
[2021-08-10 21:07] LABS: SARS-CoV-2 PCR by NAA Not Detected (NotDetected)
== END 2021-08-10 11:29 | disposition home or self-care (01) ==
LOC: LABBT 11:28
PROVIDERS: ATTEND Internal Medicine Cardiovascular Disease
DX: Z01.812 Encounter for preprocedural laboratory examination (principal); Z51.81 Encounter for therapeutic drug level monitoring; I48.0 Paroxysmal atrial fibrillation; I51.9 Heart disease, unspecified; Z79.01 Long term (current) use of anticoagulants; Z20.822 Contact with and (suspected) exposure to COVID-19
CPT/HCPCS: 80048; 85027; 85610; 85730; U0003; U0005

== ENCOUNTER 2021-08-15 05:48 | Day surgery (SDC) | payer MEDICARE ==
[2021-08-04 09:55] VITALS: BMI 34.2
[2021-08-15] MEDS ORDERED: Heparin 10,000 UNITS/ 10 ML VIAL ONE (06:31)
[2021-08-15] MEDS ORDERED: Heparin 25,000 units/D5W 500 ML ONE (06:31)
[2021-08-15] MEDS ORDERED: Fentanyl 100 MCG/2 ML VIAL ONE ×2 (06:45→11:29)
[2021-08-15] MEDS ORDERED: PROPOFOL 200 MG/20 ML VIAL ONE (07:35)
[2021-08-15] MEDS ORDERED: Rocuronium Bromide 10 MG/ML (10ML VIAL) ONE (07:35)
[2021-08-15] MEDS ORDERED: ePHEDrine 50 MG/ML VIAL ONE (07:35)
[2021-08-15] MEDS ORDERED: Ondansetron PF 4 MG/2 ML Vial ONE (07:35)
[2021-08-15] MEDS ORDERED: Succinylcholine 200 MG/10 ml SYRINGE FS ONE (07:35)
[2021-08-15] MEDS ORDERED: PHENYLEPHRINE-NS 100 MCG/ML 10 ML SYRINGE ONE (07:35)
[2021-08-15] MEDS ORDERED: Lidocaine 1% PF 5 ML VIAL ONE (07:35)
[2021-08-15] MEDS ORDERED: Isoproterenol 0.2 MG/1 ML AMP ONE (07:51)
[2021-08-15] MEDS ORDERED: Midazolam HCl 2 mg/2 ml Vial ONE (08:00)
[2021-08-15] MEDS ORDERED: Protamine Sulfate 50 MG/5 ML VIAL ONE (10:27)
[2021-08-15] MEDS ORDERED: SUGAMMADEX SODIUM 200 MG/2 ML VIAL ONE (10:27)
[2021-08-15] MEDS ORDERED: Furosemide 40 MG TAB PO PRN (10:45)
[2021-08-15] MEDS ORDERED: Potassium Chloride 20 MEQ TAB PO PRN (10:45)
[2021-08-15] MEDS ORDERED: Ketorolac Tromethamine 30 MG/ML VIAL IVP PRN (10:45)
[2021-08-15] MEDS ORDERED: Sucralfate 1 GM TAB PO SCH (11:30)
== END 2021-08-15 15:04 | disposition home or self-care (01) ==
LOC: SDC 05:48
PROVIDERS: ATTEND Internal Medicine Cardiovascular Disease
PROC: B244ZZZ Ultrasonography of Right Heart (ICD-10-PCS; principal; 2021-08-15)
PROC: 02583ZZ Destruction of Conduction Mechanism, Percutaneous Approach (ICD-10-PCS; 2021-08-15)
PROC: 02K83ZZ Map Conduction Mechanism, Percutaneous Approach (ICD-10-PCS; 2021-08-15)
PROC: 4A023FZ Measurement of Cardiac Rhythm, Percutaneous Approach (ICD-10-PCS; 2021-08-15)
PROC: 4A0234Z Measurement of Cardiac Electrical Activity, Percutaneous Approach (ICD-10-PCS; 2021-08-15)
DX: I48.0 Paroxysmal atrial fibrillation (principal); I50.30 Unspecified diastolic (congestive) heart failure; K25.4 Chronic or unspecified gastric ulcer with hemorrhage; Z79.01 Long term (current) use of anticoagulants; Z79.899 Other long term (current) drug therapy
CPT/HCPCS: 85347 ×2; 93005; 93613; 93656; 93662; C1730; C1732 ×2; C1759; C1776; J1644; J2250; J2405; J2704; J2720; J3010; J3490

== ENCOUNTER 2022-03-06 08:18 | Outpatient (CLI) | payer MEDICARE | END 2022-03-06 08:19 | disposition home or self-care (01) | LOC: RAD-FRANK 08:18 | PROVIDERS: ATTEND Nurse Practitioner Family | DX: M79.641 Pain in right hand (principal); M19.041 Primary osteoarthritis, right hand; M79.89 Other specified soft tissue disorders ==

== ENCOUNTER 2022-04-03 08:31 | Emergency (ER) | payer MEDICARE ==
[2022-04-03 09:56] LABS: #Eosinphils 0.2 thou/uL (0.0-0.7); #Neutrophils 8.6 thou/uL (1.40-6.50); %Basophils 0.4 % (0.0-1.0); %Eosinophils 2.1 % (0.0-10.0); %Lymphocytes 9.5 % (21.0-51.0); %Neutrophils 79.1 % (42.0-75.0); Hemoglobin 16.2 g/dL (14.0-18.0); Mean Corpuscular HGB CONC 31.7 g/dL (32.0-36.0); Mean Corpuscular Hemoglobin 32.3 pg (27.0-31.0); Platelet Count 250 thou/uL (130-400); RBC Distribution Width 12.6 % (11.5-14.5); White Blood Cell (WBC) Count 10.9 thou/uL (4.8-10.8)
[2022-04-03 10:14] LABS: ALT (SGPT) 31 U/L (8-55); AST (SGOT) 36 U/L (5-34); Albumin 3.8 g/dL (3.4-4.8); Alkaline Phosphatase 94 U/L (40-110); Anion Gap 11 mmol/L (10-20); BUN (Urea Nitrogen) 15 mg/dL (8.4-25.7); Bilirubin, Total 0.8 mg/dL (0.2-1.2); Calc. Creatinine Clearance 0 mL/min (70-130); Calcium 9.4 mg/dL (7.8-10.44); Carbon Dioxide 31 mmol/L (23-31); Chloride 98 mmol/L (98-107); Estimated GFR 93; Globulin 3.1 g/dL (2.4-3.5); Glucose 108 mg/dL (83-110); Potassium 4.1 mmol/L (3.5-5.1); Protein, Total 6.9 g/dL (5.8-8.1); Sodium 136 mmol/L (136-145)
[2022-04-03] MEDS ORDERED: Lidocaine 2% PF 5 ML VIAL ONE (10:23)
[2022-04-03 12:21] LABS: RBC Count-Automated (BF) 573 /cu.mm; WBC/Nucleated-Auto (BF) 237 /cu.mm
[2022-04-03 12:24] LABS: BF Color Yellow; Body Fluid Source Synovial Fluid; Clarity Clear (Clear); Tube # 1
[2022-04-03 12:55] LABS: BF Segmented Neutrophils 10 %; Cell Count Non Hematic 82 %; Lymphocytes 8 %
== END 2022-04-03 11:40 | disposition home or self-care (01) ==
LOC: ERS 08:31
DX: M71.341 Other bursal cyst, right hand (principal); E78.5 Hyperlipidemia, unspecified; E78.00 Pure hypercholesterolemia, unspecified; I10 Essential (primary) hypertension; I48.91 Unspecified atrial fibrillation; Z87.891 Personal history of nicotine dependence
CPT/HCPCS: 36415; 80053; 83605; 85025; 85060; 85652; 86140; 87040; 87070; 87205; 89051; J2001

== ENCOUNTER 2022-04-04 12:46 | Emergency (ER) | payer MEDICARE ==
[2022-04-04 15:16] LABS: #Eosinphils 0.3 thou/uL (0.0-0.7); #Lymphocytes 1.2 thou/uL (1.20-3.40); #Monocytes 0.9 thou/uL (0.11-0.59); #Neutrophils 7.2 thou/uL (1.40-6.50); %Basophils 0.3 % (0.0-1.0); %Eosinophils 3.4 % (0.0-10.0); %Lymphocytes 12.5 % (21.0-51.0); %Monocytes 9.2 % (0.0-10.0); %Neutrophils 74.6 % (42.0-75.0); Hemoglobin 15.4 g/dL (14.0-18.0); Mean Corpuscular HGB CONC 31.7 g/dL (32.0-36.0); Mean Corpuscular Hemoglobin 32.3 pg (27.0-31.0); Platelet Count 237 thou/uL (130-400); RBC Distribution Width 12.6 % (11.5-14.5); Red Blood Cell (RBC) Count 4.78 mill/uL (4.70-6.10); White Blood Cell (WBC) Count 9.6 thou/uL (4.8-10.8)
[2022-04-04 15:37] LABS: ALT (SGPT) 29 U/L (8-55); AST (SGOT) 33 U/L (5-34); Albumin 3.8 g/dL (3.4-4.8); Alkaline Phosphatase 102 U/L (40-110); Anion Gap 13 mmol/L (10-20); BUN (Urea Nitrogen) 15 mg/dL (8.4-25.7); Bilirubin, Total 0.7 mg/dL (0.2-1.2); CRP (Inflammatory) 0.52 mg/dL (= or < 0.5); Calc. Creatinine Clearance 0 mL/min (70-130); Calcium 9.3 mg/dL (7.8-10.44); Carbon Dioxide 27 mmol/L (23-31); Chloride 97 mmol/L (98-107); Estimated GFR 93; Globulin 3.2 g/dL (2.4-3.5); Glucose 86 mg/dL (83-110); Potassium 3.7 mmol/L (3.5-5.1); Sodium 133 mmol/L (136-145)
[2022-04-04 16:14] LABS: SARS-CoV-2 NAA Rapid Test Not Detected (NotDetected)
== END 2022-04-04 18:12 | disposition home or self-care (01) ==
LOC: ERS 12:46
DX: S60.221A Contusion of right hand, initial encounter (principal); I11.0 Hypertensive heart disease with heart failure; I50.9 Heart failure, unspecified; M10.9 Gout, unspecified; E78.5 Hyperlipidemia, unspecified; E78.00 Pure hypercholesterolemia, unspecified; Z20.822 Contact with and (suspected) exposure to COVID-19; Z87.891 Personal history of nicotine dependence; X58.XXXA Exposure to other specified factors, initial encounter
CPT/HCPCS: 73130; 80053 ×2; 83605 ×2; 85025 ×2; 85652 ×2; 86140 ×2; 87040; 87070; 87205; 89051; 99283 ×2; U0002; 36415; 85060; J2001

== ENCOUNTER 2022-04-05 12:01 | Day surgery (SDC) | payer MEDICARE ==
[2022-04-05] MEDS ORDERED: fentaNYL Citrate/PF 100 MCG/2 ML SYRINGE ONE (12:55)
[2022-04-05] MEDS ORDERED: Bupivacaine PF 0.5% 30 ML VIAL ONE (13:06)
[2022-04-05] MEDS ORDERED: Neomycin-Polymyxin 1 ML AMP ONE (13:06)
[2022-04-05] MEDS ORDERED: Bacitracin Zinc Ointment 30 gm TUBE ONE (13:06)
[2022-04-05] MEDS ORDERED: Thrombin 5000 UNITS/5 ML VIAL ONE (13:06)
[2022-04-05] MEDS ORDERED: Lidocaine 1% MPF 2 ML VIAL ONE (13:41)
[2022-04-05] MEDS ORDERED: PROPOFOL 200 MG/20 ML VIAL ONE (13:41)
[2022-04-05] MEDS ORDERED: ePHEDrine 50 MG/ML VIAL ONE (13:41)
[2022-04-05] MEDS ORDERED: Ondansetron PF 4 MG/2 ML Vial ONE (13:41)
[2022-04-05] MEDS ORDERED: Ketorolac Tromethamine 30 MG/ML VIAL ONE (15:56)
[2022-04-05] MEDS ORDERED: Fentanyl 100 MCG/2 ML VIAL ONE (16:04)
[2022-04-08 13:14] LABS: Fungus Stain Final report (.)
== END 2022-04-05 17:20 | disposition home or self-care (01) ==
LOC: SDC 12:01
PROVIDERS: ATTEND Orthopaedic Surgery Hand Surgery
PROC: 0LB70ZZ Excision of Right Hand Tendon, Open Approach (ICD-10-PCS; principal; 2022-04-05)
PROC: 01N50ZZ Release Median Nerve, Open Approach (ICD-10-PCS; 2022-04-05)
PROC: 0RBW0ZX Excision of Right Finger Phalangeal Joint, Open Approach, Diagnostic (ICD-10-PCS; 2022-04-05)
DX: M65.841 Other synovitis and tenosynovitis, right hand (principal); M79.89 Other specified soft tissue disorders; M10.9 Gout, unspecified
CPT/HCPCS: 87070; 87102; 87116; 87205; 87206; 88304; 88305; 89060; J1885; J2405; J2704; J3010; J3490; S0020

== ENCOUNTER 2022-10-20 23:01 | Inpatient (IN) | payer MEDICARE ==
[2022-10-21 01:27] LABS: Hemoglobin 14.7 g/dL (14.0-18.0); Mean Corpuscular HGB CONC 34.4 g/dL (32.0-36.0); Mean Corpuscular Hemoglobin 33.9 pg (27.0-31.0); Mean Corpuscular Volume 98.3 fl (78.0-98.0); Mean Platelet Volume 7.7 fL (7.4-10.4); Platelet Count 158 10x3/uL (130-400); RBC Distribution Width 12.6 % (11.5-14.5); Red Blood Cell (RBC) Count 4.33 mill/uL (4.70-6.10); White Blood Cell (WBC) Count 23.3 10x3/uL (4.8-10.8)
[2022-10-21 01:43] LABS: Band 26 % (5-11); Lymphocytes 5 % (21-51); MDiff Complete? YES; Monocytes 9 % (0-10); Neutrophil 59 % (42-75); Platelet Morphology Comment Appears Adequate; RBC Morphology Normal; Reactive Lymphocytes 1 % (0-10)
[2022-10-21 01:54] LABS: ALT (SGPT) 12 U/L (8-55); AST (SGOT) 19 U/L (5-34); Albumin 3.5 g/dL (3.4-4.8); Alkaline Phosphatase 73 U/L (40-110); BUN (Urea Nitrogen) 17 mg/dL (8.4-25.7); Bilirubin, Total 0.9 mg/dL (0.2-1.2); CK (CPK) 45 U/L (30-200); Calc. Creatinine Clearance 0 mL/min (70-130); Calcium 9.2 mg/dL (7.8-10.44); Carbon Dioxide 22 mmol/L (23-31); Estimated GFR 90; Globulin 2.9 g/dL (2.4-3.5); Glucose 89 mg/dL (83-110); Lipase 10 U/L (8-78); Protein, Total 6.4 g/dL (5.8-8.1)
[2022-10-21 02:16] LABS: Bilirubin Negative (Negative); Blood, Urine Negative (Negative); Clarity Clear (Clear); Glucose, Urine (Dipstick) Normal (Negative); Ketone, Urine 10 mg/dL (Negative); Leukocyte Negative Leu/uL (Negative); Nitrite Negative (Negative); Protein, Urine (Dipstick) Negative (Neg-Trace); Specific Gravity, Urine 1.009 (1.002-1.036); Urobilinogen Normal mg/dL (Less than 2); pH, Urine 5.5 (5.0-9.0)
[2022-10-21] MEDS ORDERED: Cefepime 2 GM VIAL ONE (02:39)
[2022-10-21] MEDS ORDERED: Vancomycin 1 GM/200 ML (FROZEN) BAG ONE (02:39)
[2022-10-21 03:23] LABS: Anion Gap 19 mmol/L (10-20); Chloride 88 mmol/L (98-107); Potassium 5.1 mmol/L (3.5-5.1); Sodium 120 mmol/L (136-145)
[2022-10-21 07:51] LABS: Troponin I Less than 0.010 ng/mL (< 0.028)
[2022-10-21] MEDS ORDERED: Acetaminophen 325 MG TAB PO PRN (08:45)
[2022-10-21] MEDS ORDERED: Ondansetron PF 4 MG/2 ML Vial IVP PRN (08:45)
[2022-10-21 09:51] VITALS: BMI 35.0
[2022-10-21] MEDS: Thiamine HCl 200 MG/2 ML VIAL SLOW IVP SCH (09:51)
[2022-10-21 10:36] LABS: Hemoglobin 14.3 g/dL (14.0-18.0); Mean Corpuscular HGB CONC 33.8 g/dL (32.0-36.0); Mean Corpuscular Hemoglobin 33.4 pg (27.0-31.0); Mean Corpuscular Volume 98.7 fl (78.0-98.0); Mean Platelet Volume 7.7 fL (7.4-10.4); Platelet Count 175 10x3/uL (130-400); RBC Distribution Width 12.8 % (11.5-14.5); Red Blood Cell (RBC) Count 4.27 mill/uL (4.70-6.10); White Blood Cell (WBC) Count 17.2 10x3/uL (4.8-10.8)
[2022-10-21 11:01] LABS: Troponin I Less than 0.010 ng/mL (< 0.028)
[2022-10-21] MEDS: Ampicillin/Sulbactam 3 GM in Sodium Chloride 0.9% 100 ML IVPB SCH ×3 (11:43→23:20)
[2022-10-21] MEDS ORDERED: Iopamidol-370 76% 500 ML MDV (1 ML CHARGE) ONE (11:44)
[2022-10-21 11:56] LABS: Band 11 % (5-11); Large Platelets SLIGHT; Lymphocytes 3 % (21-51); MDiff Complete? YES; Monocytes 5 % (0-10); Neutrophil 81 % (42-75); Platelet Morphology Comment Appears Adequate; Polychromasia SLIGHT = 2-3 cells (100X) (0-2/hpf); Vacuoles SLIGHT
[2022-10-21] MEDS: Carvedilol 6.25 MG TAB PO SCH (20:34)
[2022-10-21] MEDS ORDERED: Atorvastatin Calcium 40 MG TAB PO SCH (21:00)
[2022-10-22] MEDS: Ampicillin/Sulbactam 3 GM in Sodium Chloride 0.9% 100 ML IVPB SCH ×2 (05:24→11:54)
[2022-10-22 05:33] LABS: #Eosinphils 0.3 thou/uL (0.0-0.7); #Lymphocytes 0.9 thou/uL (1.20-3.40); #Monocytes 1.1 thou/uL (0.11-0.59); #Neutrophils 6.5 thou/uL (1.40-6.50); %Basophils 0.4 % (0.0-1.0); %Eosinophils 3.2 % (0.0-10.0); %Lymphocytes 10.6 % (21.0-51.0); %Monocytes 12.9 % (0.0-10.0); %Neutrophils 72.9 % (42.0-75.0); Hemoglobin 13.7 g/dL (14.0-18.0); Mean Corpuscular Hemoglobin 34.9 pg (27.0-31.0); Mean Corpuscular Volume 99.7 fl (78.0-98.0); Mean Platelet Volume 7.4 fL (7.4-10.4); Platelet Count 155 10x3/uL (130-400); RBC Distribution Width 12.9 % (11.5-14.5); Red Blood Cell (RBC) Count 3.93 mill/uL (4.70-6.10); White Blood Cell (WBC) Count 8.9 10x3/uL (4.8-10.8)
[2022-10-22 05:46] LABS: Anion Gap 13 mmol/L (10-20); BUN (Urea Nitrogen) 11 mg/dL (8.4-25.7); Calc. Creatinine Clearance 139 mL/min (70-130); Calcium 8.5 mg/dL (7.8-10.44); Carbon Dioxide 22 mmol/L (23-31); Chloride 99 mmol/L (98-107); Estimated GFR 94; Glucose 100 mg/dL (83-110); Potassium 3.8 mmol/L (3.5-5.1); Sodium 130 mmol/L (136-145)
[2022-10-22] MEDS ORDERED: Ferrous Sulfate 325 MG TAB PO SCH (08:00)
[2022-10-22] MEDS: Carvedilol 6.25 MG TAB PO SCH (08:10)
[2022-10-22] MEDS: Thiamine HCl 200 MG/2 ML VIAL SLOW IVP SCH (08:10)
[2022-10-22] MEDS ORDERED: Lisinopril 10 MG TAB PO SCH (09:00)
[2022-10-22] MEDS ORDERED: Allopurinol 100 MG TAB PO SCH (09:00)
[2022-10-22] MEDS ORDERED: CO Q-10 CAPSULE 100 MG PO SCH (09:00)
[2022-10-22 16:13] VITALS: BP 134/68; TEMP 98
== END 2022-10-22 17:54 | disposition home or self-care (01) | DRG 158 ==
LOC: ERS 23:01 → 2SW 10-21 06:40
PROVIDERS: ADMIT Family Medicine; ATTEND Family Medicine
DX: K04.7 Periapical abscess without sinus (principal); E87.1 Hypo-osmolality and hyponatremia; I48.20 Chronic atrial fibrillation, unspecified; I48.91 Unspecified atrial fibrillation; E78.5 Hyperlipidemia, unspecified; T50.2X5A Adverse effect of carbonic-anhydrase inhibitors, benzothiadiazides and other diuretics, initial encounter; I10 Essential (primary) hypertension; Z79.899 Other long term (current) drug therapy; Z79.01 Long term (current) use of anticoagulants; Z98.890 Other specified postprocedural states; Z87.891 Personal history of nicotine dependence
CPT/HCPCS: 36415; 71045; 71275; 80048; 80053; 81003; 82550; 83605; 83690; 83880; 84484; 85025; 85379; 87040; 93005; J0295; J0692; J3370-JW; J3411; J3490; Q9967

== ENCOUNTER 2023-02-06 08:28 | Emergency (ER) | payer MEDICARE, OTHER | END 2023-02-06 10:05 | disposition home or self-care (01) | LOC: ERS 08:28 | DX: S09.90XA Unspecified injury of head, initial encounter (principal); E78.00 Pure hypercholesterolemia, unspecified; I10 Essential (primary) hypertension; W20.8XXA Other cause of strike by thrown, projected or falling object, initial encounter; Y93.H2 Activity, gardening and landscaping; Z87.891 Personal history of nicotine dependence | CPT/HCPCS: 70450 ==

== ENCOUNTER 2023-06-18 08:38 | Emergency (ER) | payer MEDICARE ==
[2023-06-18 09:04] LABS: #Basophils 0.1 thou/uL (0.0-0.2); #Eosinphils 0.3 thou/uL (0.0-0.7); #Neutrophils 8.3 thou/uL (1.40-6.50); %Basophils 0.6 % (0.0-1.0); %Lymphocytes 10.2 % (21.0-51.0); %Monocytes 8.9 % (0.0-10.0); Hematocrit 46.3 % (42.0-52.0); Hemoglobin 15.7 g/dL (14.0-18.0); Mean Corpuscular HGB CONC 33.9 g/dL (32.0-36.0); Mean Corpuscular Hemoglobin 32.8 pg (27.0-31.0); Mean Corpuscular Volume 96.7 fl (78.0-98.0); Mean Platelet Volume 10.3 fL (7.4-10.4); Platelet Count 227 10x3/uL (130-400); RBC Distribution Width 13.9 % (11.5-14.5); Red Blood Cell (RBC) Count 4.79 mill/uL (4.70-6.10); White Blood Cell (WBC) Count 10.9 10x3/uL (4.8-10.8)
[2023-06-18 09:30] LABS: Troponin I 0.011 ng/mL (< 0.028)
[2023-06-18] MEDS ORDERED: Furosemide 40 MG/4 ML VIAL ONE (09:33)
[2023-06-18 10:11] LABS: Albumin 3.7 g/dL (3.4-4.8)
[2023-06-18 10:13] LABS: Calcium 9.1 mg/dL (7.8-10.44); Chloride 105 mmol/L (98-107); Potassium 3.9 mmol/L (3.5-5.1); Sodium 137 mmol/L (136-145)
[2023-06-18 10:14] LABS: Globulin 2.9 g/dL (2.4-3.5); Glucose 106 mg/dL (83-110); Protein, Total 6.6 g/dL (5.8-8.1)
[2023-06-18 10:15] LABS: Anion Gap 10 mmol/L (10-20); Carbon Dioxide 26 mmol/L (23-31)
[2023-06-18 10:16] LABS: Bilirubin, Total 0.8 mg/dL (0.2-1.2)
[2023-06-18 10:17] LABS: Alkaline Phosphatase 87 U/L (40-110); Calc. Creatinine Clearance 0 mL/min (70-130); Estimated GFR 94
[2023-06-18 10:18] LABS: BUN (Urea Nitrogen) 13 mg/dL (8.4-25.7)
[2023-06-18 10:19] LABS: AST (SGOT) 15 U/L (5-34)
[2023-06-18 10:20] LABS: ALT (SGPT) 13 U/L (8-55)
== END 2023-06-18 10:30 | disposition home or self-care (01) ==
LOC: ERS 08:38
DX: I11.0 Hypertensive heart disease with heart failure (principal); I50.9 Heart failure, unspecified; R06.02 Shortness of breath; I48.91 Unspecified atrial fibrillation; E78.00 Pure hypercholesterolemia, unspecified; Z87.891 Personal history of nicotine dependence; Z79.899 Other long term (current) drug therapy
CPT/HCPCS: 36415; 71045; 80053; 83880; 84484; 85025; 93005; 96374; J1940

== ENCOUNTER 2024-02-02 05:33 | Emergency (ER) | payer MEDICARE, OTHER ==
[2024-02-02 08:13] LABS: Influenza A by NAA Not Detected (NotDetected); Influenza B by NAA Not Detected (NotDetected); SARS-CoV-2 NAA Rapid Test DETECTED (NotDetected)
== END 2024-02-02 06:17 | disposition home or self-care (01) ==
LOC: ERS 05:33
DX: U07.1 COVID-19 (principal); J02.9 Acute pharyngitis, unspecified; I11.0 Hypertensive heart disease with heart failure; I50.9 Heart failure, unspecified; I48.91 Unspecified atrial fibrillation; Z55.6 Problems related to health literacy; Z87.891 Personal history of nicotine dependence
CPT/HCPCS: 99283